=== PATIENT | female | born 1935 | race Two or more races ===

== ENCOUNTER 2018-06-19 16:37 | Inpatient (IN) | payer MEDICARE, MEDICAID ==
[~2018-06-19] VITALS: Ht 165.1 cm; Wt 59.4 kg
[~2018-06-19 16:37] MED LIST: ADVAIR 250/501 PUFFS INH; ALBUTEROL SULF8.5 GM INH; ALBUTEROL2.5 MG/3 M HHN; AMITRIPTYLINE H25 MG ORAL; ARICEPT23 MG ORAL; AZITHROMYCIN250 MG ORAL; BENADRYL25 M2 PO; CELEBREX100 MG ORAL; CELEXA20 MG ORAL; DONEPEZIL HCL10 MG ORAL; DUONEB 0.5-3(2.53 ML HHN; FUROSEMIDE20 M1 ORAL; LORAZEPAM1 MG ORAL; NITROSTAT0.4 M1 SL; PREDNISONE10 M2 PO; PRILOSEC20 MG ORAL; PROAIR HFA8.5 GM INH; RESTORIL7.5 MG ORAL; SINGULAIR10 MG ORAL; TRAMADOL HCL50 MG ORAL; ZOLPIDEM TARTRA10 MG ORAL; pro-air
[2018-06-19 16:57] VITALS: BP 136/65
[2018-06-19] MEDS ORDERED: Sodium Chloride 500ML 500 ML IV ONE (17:11)
[2018-06-19 17:44] LABS: BASOPHILS % (AUTO) 1.3 % (0.0-2.0); HEMATOCRIT 42.3 % (37.0-47.0); HEMOGLOBIN 14.5 G/DL (12.0-16.0); LYMPHOCYTES % (AUTO) 18.9 % (20.0-45.0); MEAN CORPUSCULAR VOLUME 88 FL (80-99); MONOCYTES % (AUTO) 7.2 % (1.0-10.0); NEUTROPHILS % (AUTO) 68.6 % (45.0-75.0); PLATELET COUNT 174 K/UL (150-450); RED BLOOD COUNT 4.78 M/UL (4.20-5.40); RED CELL DISTRIBUTION WIDTH 11.6 % (11.6-14.8); WHITE BLOOD COUNT 9.5 K/UL (4.8-10.8)
[2018-06-19 18:09] LABS: ANION GAP 11 mmol/L (5-15); BLOOD UREA NITROGEN 14 mg/dL (7-18); CALCIUM 8.6 MG/DL (8.5-10.1); CARBON DIOXIDE 23 MMOL/L (21-32); CHLORIDE 105 MMOL/L (98-107); CREATININE 0.9 MG/DL (0.55-1.30); POTASSIUM 4.3 MMOL/L (3.5-5.1); SODIUM 139 MMOL/L (136-145)
[2018-06-19 18:23] LABS: ALANINE AMINOTRANSFERASE 32 U/L (12-78); ALBUMIN/GLOBULIN RATIO 0.7 (1.0-2.7); ALKALINE PHOSPHATASE 73 U/L (46-116); ASPARTATE AMINO TRANSFERASE 28 U/L (15-37); BILIRUBIN,TOTAL 0.8 MG/DL (0.2-1.0); CKMB 0.5 NG/ML (0.0-3.6); CREATINE KINASE 52 U/L (26-308)
[2018-06-19] MEDS ORDERED: IBUPROFEN600 MG ORAL (18:54)
[2018-06-19] MEDS ORDERED: LEXAPRO10 MG ORAL (18:54)
[2018-06-19] MEDS ORDERED: TRAMADOL HCL50 MG ORAL (18:56)
[2018-06-19 19:02] LABS: APPEARANCE,URINE CLEAR; BILIRUBIN, URINE NEGATIVE (NEGATIVE); COLOR,URINE PALE YELLOW; GLUCOSE, URINE (UA) NEGATIVE (NEGATIVE); KETONES,URINE NEGATIVE (NEGATIVE); LEUKOCYTE ESTERASE ,URINE 1+ (NEGATIVE); NITRITE,URINE NEGATIVE (NEGATIVE); PH,URINE 7 (4.5-8.0); PROTEIN,URINE NEGATIVE (NEGATIVE); UROBILINOGEN,URINE NORMAL MG/DL (0.0-1.0)
[2018-06-19] MEDS ORDERED: DICYCLOMINE HCL10 MG PO (19:04)
[2018-06-19] MEDS ORDERED: AMLODIPINE BESY10 MG ORAL (19:04)
[2018-06-19] MEDS ORDERED: CITALOPRAM HBR10 M1 ORAL (19:04)
[2018-06-19 19:06] VITALS: BP 140/75
[2018-06-19 19:15] VITALS: BP 126/58
--- NOTE | 2018-06-19 19:27 | Emergency Room Report ---
History of Present Illness General Chief Complaint: Abnormal Labs Source: Patient, Family Member Present Illness HPI Patient presents with complaints of general weakness patient reports that she was told that she had an abnormal blood work results as well Patient has had some increased cough Denies any chest pain at this time denies any vomiting or diarrhea Denies any dysuria frequency She had questionable near syncope with lightheadedness as well Allergies: Coded Allergies: No Known Allergies (Unverified , 05/08/13) Patient History Past Medical History: see triage record Pertinent Family History: none Last Menstrual Period: na Reviewed Nursing Documentation: PMH: Agreed; PSxH: Agreed Nursing Documentation-PMH Past Medical History: No History, Except For Hx Cardiac Problems: No Hx Hypertension: Yes Hx Asthma: Yes Hx COPD: Yes Hx Cancer: No Hx Gastrointestinal Problems: Yes Hx Neurological Problems: Yes Hx Alzheimer's Disease: Yes Hx Memory Loss: Yes Review of Systems All Other Systems: negative except mentioned in HPI Physical Exam Vital Signs Date Time Temp Pulse Resp B/P (MAP) Pulse Ox O2 Delivery O2 Flow Rate FiO2 06/19/18 16:49 98.4 90 18 136/65 90 Room Air 98.4 Sp02 EP Interpretation: reviewed, normal General Appearance: well appearing, no apparent distress Head: normocephalic, atraumatic Eyes: bilateral eye PERRL, bilateral eye EOMI ENT: hearing grossly normal, normal pharynx, TMs + canals normal, uvula midline Neck: full range of motion, supple, no meningismus, no bony tend Respiratory: lungs clear, normal breath sounds, no rhonchi, no respiratory distress, no retraction, no accessory muscle use Cardiovascular #1: normal peripheral pulses, regular rate, rhythm, no edema, no gallop, no JVD, no murmur Gastrointestinal: normal bowel sounds, non tender, soft, no mass, no organomegaly, non-distended, no guarding, no hernia, no pulsatile mass, no rebound Genitourinary: no CVA tenderness Musculoskeletal: normal inspection Neurologic: oriented x3, responsive, irrigator sprinkling system III-XII nml as tested, motor strength/ tone normal, sensory intact Psychiatric: mood/affect normal Skin: normal color, no rash, warm/dry, palpation normal Lymphatic: normal inspection, no adenopathy Medical Decision Making Diagnostic Impression: Primary Impression: Hypoxia Additional Impression: Reactive airway disease ER Course Patient is a fairly complex patient with multiple differential to consideration including but not limited to cardiac cardiopulmonary and vascular emergencies Patient's x-ray does not reveal any pneumothorax however there is some abnormality in consideration patient provided with IV antibiotics At this time requires further inpatient care Labs Test 06/19/18 17:22 06/19/18 18:50 06/20/18 05:45 White Blood Count 9.5 K/UL (4.8-10.8) 7.3 K/UL (4.8-10.8) Red Blood Count 4.78 M/UL (4.20-5.40) 4.63 M/UL (4.20-5.40) Hemoglobin 14.5 G/DL (12.0-16.0) 14.3 G/DL (12.0-16.0) Hematocrit 42.3 % (37.0-47.0) 41.9 % (37.0-47.0) Mean Corpuscular Volume 88 FL (80-99) 90 FL (80-99) Mean Corpuscular Hemoglobin 30.2 PG (27.0-31.0) 30.9 PG (27.0-31.0) Mean Corpuscular Hemoglobin Concent 34.2 G/DL (32.0-36.0) 34.1 G/DL (32.0-36.0) Red Cell Distribution Width 11.6 % (11.6-14.8) 11.1 % (11.6-14.8) Platelet Count 174 K/UL (150-450) 181 K/UL (150-450) Mean Platelet Volume 8.7 FL (6.5-10.1) 7.1 FL (6.5-10.1) Neutrophils (%) (Auto) 68.6 % (45.0-75.0) 68.1 % (45.0-75.0) Lymphocytes (%) (Auto) 18.9 % (20.0-45.0) 18.7 % (20.0-45.0) Monocytes (%) (Auto) 7.2 % (1.0-10.0) 5.7 % (1.0-10.0) Eosinophils (%) (Auto) 4.0 % (0.0-3.0) 6.1 % (0.0-3.0) Basophils (%) (Auto) 1.3 % (0.0-2.0) 1.3 % (0.0-2.0) Sodium Level 139 MMOL/L (136-145) 140 MMOL/L (136-145) Potassium Level 4.3 MMOL/L (3.5-5.1) 3.9 MMOL/L (3.5-5.1) Chloride Level 105 MMOL/L (98-107) 105 MMOL/L (98-107) Carbon Dioxide Level 23 MMOL/L (21-32) 28 MMOL/L (21-32) Anion Gap 11 mmol/L (5-15) 8 mmol/L (5-15) Blood Urea Nitrogen 14 mg/dL (7-18) 9 mg/dL (7-18) Creatinine 0.9 MG/DL (0.55-1.30) 0.9 MG/DL (0.55-1.30) Estimat Glomerular Filtration Rate mL/min (>60) mL/min (>60) Glucose Level 97 MG/DL (74-106) 115 MG/DL (74-106) Calcium Level 8.6 MG/DL (8.5-10.1) 8.4 MG/DL (8.5-10.1) Total Bilirubin 0.8 MG/DL (0.2-1.0) Aspartate Amino Transf (AST/SGOT) 28 U/L (15-37) Alanine Aminotransferase (ALT/SGPT) 32 U/L (12-78) Alkaline Phosphatase 73 U/L (46-116) Total Creatine Kinase 52 U/L (26-308) Creatine Kinase MB 0.5 NG/ML (0.0-3.6) Creatine Kinase MB Relative Index 0.9 Troponin I 0.000 ng/mL (0.000-0.056) Total Protein 7.1 G/DL (6.4-8.2) Albumin 3.0 G/DL (3.4-5.0) 2.9 G/DL (3.4-5.0) Globulin 4.1 g/dL Albumin/Globulin Ratio 0.7 (1.0-2.7) Lipase 240 U/L (73-393) Urine Color Pale yellow Urine Appearance Clear Urine pH 7 (4.5-8.0) Urine Specific [place] 1.010 (1.005-1.035) Urine Protein Negative (NEGATIVE) Urine Glucose (UA) Negative (NEGATIVE) Urine Ketones Negative (NEGATIVE) Urine Occult Blood Negative (NEGATIVE) Urine Nitrite Negative (NEGATIVE) Urine Bilirubin Negative (NEGATIVE) Urine Urobilinogen Normal MG/DL (0.0-1.0) Urine Leukocyte Esterase 1+ (NEGATIVE) Urine RBC 0-2 /HPF (0 - 2) Urine WBC 2-4 /HPF (0 - 2) Urine Squamous Epithelial Cells Few /LPF (NONE/OCC) Urine Bacteria Few /HPF (NONE) Phosphorus Level 3.3 MG/DL (2.5-4.9) EKG Diagnostic Results Rate: normal Rhythm: NSR ST Segments: no acute changes Rhythm Strip Diag. Results EP Interpretation: yes Rate: 66 Rhythm: NSR, no PVC's, no ectopy Chest X-Ray Diagnostic Results Chest X-Ray Diagnostic Results : Chest X-Ray Ordered: Yes # of Views/Limited/Complete: 1 View Indication: Shortness of Breath Interpretation: no effusion, no pneumothorax, other - Bilateral atelectasis question possible underlying infiltrate, heart size normal, Impression: Other Electronically Signed by: Mary Fernandes DO Last Vital Signs Date Time Temp Pulse Resp B/P (MAP) Pulse Ox O2 Delivery O2 Flow Rate FiO2 06/19/18 19:06 98.4 74 15 140/75 90 Room Air 98.4 Status: improved Disposition: ADMITTED INPATIENT Condition: Serious Referrals: Pal Britt DO (PCP) Mary Fernandes DO Jun 19, 2018 19:27
[2018-06-19 20:30] VITALS: BP 128/75
[2018-06-19] MEDS ORDERED: Nitroglycerin Subl 0.4mg tab SL PRN (20:45)
[2018-06-19] MEDS ORDERED: Mylanta II UD 30ml ORAL PRN (20:45)
[2018-06-19] MEDS ORDERED: Albuterol/Ipratropium 3ml neb HHN PRN (20:45)
[2018-06-19] MEDS ORDERED: Promethazine/Codeine 5ml UD ORAL PRN (20:45)
[2018-06-19] MEDS ORDERED: Miralax 17gm pkt ORAL PRN (20:45)
[2018-06-19] MEDS ORDERED: Vancomycin 1gm in D5W 275ml IVPB SCH (22:00)
[2018-06-19] MEDS: Heparin 5000 units/ml inj SUBQ SCH (22:17)
[2018-06-19] MEDS: Cefepime HCl 1 GM in D5W 55 ML IV SCH (22:36)
[2018-06-20 00:05] VITALS: BP 114/59
[2018-06-20 04:00] VITALS: BP 113/61
[2018-06-20 06:46] LABS: BASOPHILS % (AUTO) 1.3 % (0.0-2.0); EOSINOPHILS % (AUTO) 6.1 % (0.0-3.0); HEMATOCRIT 41.9 % (37.0-47.0); HEMOGLOBIN 14.3 G/DL (12.0-16.0); LYMPHOCYTES % (AUTO) 18.7 % (20.0-45.0); MEAN CORPUSCULAR VOLUME 90 FL (80-99); MONOCYTES % (AUTO) 5.7 % (1.0-10.0); NEUTROPHILS % (AUTO) 68.1 % (45.0-75.0); PLATELET COUNT 181 K/UL (150-450); RED BLOOD COUNT 4.63 M/UL (4.20-5.40); RED CELL DISTRIBUTION WIDTH 11.1 % (11.6-14.8); WHITE BLOOD COUNT 7.3 K/UL (4.8-10.8)
[2018-06-20 06:53] LABS: ALBUMIN 2.9 G/DL (3.4-5.0); ANION GAP 8 mmol/L (5-15); BLOOD UREA NITROGEN 9 mg/dL (7-18); CALCIUM 8.4 MG/DL (8.5-10.1); CARBON DIOXIDE 28 MMOL/L (21-32); CHLORIDE 105 MMOL/L (98-107); CREATININE 0.9 MG/DL (0.55-1.30); PHOSPHORUS 3.3 MG/DL (2.5-4.9); POTASSIUM 3.9 MMOL/L (3.5-5.1); SODIUM 140 MMOL/L (136-145)
[2018-06-20 07:56] VITALS: BP 118/63
[2018-06-20] MEDS: Donepezil 10mg tab ORAL SCH (08:20)
[2018-06-20] MEDS: Heparin 5000 units/ml inj SUBQ SCH ×2 (08:22→20:31)
[2018-06-20] MEDS ORDERED: NS 275ml ONE (10:11)
[2018-06-20] MEDS ORDERED: Tubing IV Secondary IV ONE (10:11)
[2018-06-20 11:39] VITALS: BP 111/54
--- NOTE | 2018-06-20 14:38 | Consultation ---
History of Present Illness General Date patient seen: Jun 20, 2018 Chief Complaint: dyspnea Present Illness HPI 82 year old female with hx of COPD, Hypertension, depression presented to [facility] [place] with CC of increasing SOB, cough, dyspnea and fever for the last few days. Allergies: Coded Allergies: No Known Allergies (Unverified , 05/08/13) Medication History Scheduled Albuterol Sulfate* (Proair Hfa*), 2 PUFFS INH Q6H, (Reported) Amlodipine Besylate* (Amlodipine Besylate*), 10 MG ORAL DAILY, (Reported) Celecoxib* (Celebrex*), 100 MG ORAL DAILY, (Reported) Citalopram Hydrobromide* (Citalopram Hbr*), 10 MG ORAL DAILY, (Reported) Dicyclomine Hcl* (Dicyclomine Hcl*), 10 MG PO TID, (Reported) Donepezil Hcl* (Donepezil Hcl*), 10 MG ORAL DAILY, (Reported) Escitalopram Oxalate* (Lexapro*), 10 MG ORAL DAILY, (Reported) Fluticasone/Salmeterol (Advair 250-50 Diskus), 1 PUFF INH EVERY 12 HOURS, ( Reported) Omeprazole (Prilosec), 20 MG ORAL BID, (Reported) Scheduled PRN Albuterol Sulfate* (Albuterol Sulfate Mdi*), 2 PUFF INH Q4H PRN for For Cough Ibuprofen* (Motrin*), 600 MG ORAL DAILY PRN for For Pain, (Reported) Tramadol Hcl* (Ultram*), 50 MG ORAL EVERY OTHER DAY PRN for For Pain, (Reported) Miscellaneous Medications Ipratropium/Albuterol Sulfate (DuoNeb 0.5-3(2.5)mg/3ml), 3 ML HHN, (Reported) Discontinued Medications Amitriptyline Hcl* (Amitriptyline Hcl*), 25 MG ORAL BEDTIME, (Reported) Discontinued Reason: Pt stopped taking med Azithromycin* (Zithromax*), 250 MG ORAL DAILY Discontinued Reason: Pt stopped taking med Citalopram Hydrobromide* (Celexa*), 10 MG ORAL DAILY, (Reported) Discontinued Reason: Prescription changed Furosemide* (Lasix*), 20 MG ORAL DAILY, (Reported) Discontinued Reason: Pt stopped taking med Lorazepam* (Lorazepam*), 1 MG ORAL, (Reported) Discontinued Reason: Pt stopped taking med Nitroglycerin (Nitrostat), 0.4 MG SL Q5M X3 DOSES PRN for CHEST PAIN, (Reported) Discontinued Reason: Pt stopped taking med Prednisone (Prednisone), 10 MG PO DAILY, (Reported) Discontinued Reason: Pt stopped taking med Zolpidem Tartrate* (Zolpidem Tartrate*), 10 MG ORAL BEDTIME PRN for Insomnia, ( Reported) Discontinued Reason: Pt stopped taking med Patient History Healthcare decision maker N Resuscitation status Advanced Directive on File Past Medical/Surgical History Past Medical/Surgical History: (1) History of hypertension (2) Bronchiectasis Review of Systems All Other Systems: negative except mentioned in HPI Physical Exam General Appearance: WD/WN Lines, tubes and drains: peripheral HEENT: normocephalic, atraumatic Neck: non-tender, normal alignment Respiratory/Chest: chest wall non-tender, lungs clear Cardiovascular/Chest: normal peripheral pulses, normal rate Abdomen: normal bowel sounds, non tender Genitourinary/Rectal: normal genital exam, normal rectal exam Extremities: normal range of motion Last 24 Hour Vital Signs Date Time Temp Pulse Resp B/P (MAP) Pulse Ox O2 Delivery O2 Flow Rate FiO2 06/20/18 11:39 99.0 80 18 111/54 (73) 97 99.0 06/20/18 08:20 79 118/63 06/20/18 08:20 Nasal Cannula 2.0 Nasal Cannula 2.0 06/20/18 07:56 98.8 79 18 118/63 (81) 97 98.8 06/20/18 07:30 Nasal Cannula 2.0 28 06/20/18 07:30 98 20 Nasal Cannula 2.0 28 06/20/18 07:30 Nasal Cannula 2.0 28 06/20/18 06:45 98.2 06/20/18 05:46 98.2 06/20/18 04:00 98.2 75 18 113/61 (78) 96 98.2 06/20/18 00:05 98.1 78 20 114/59 (77) 95 98.1 06/19/18 22:37 98.3 06/19/18 21:23 Nasal Cannula 2.0 06/19/18 21:05 98.3 81 21 126/58 97 Nasal Cannula 2.0 98.3 06/19/18 20:45 97 Nasal Cannula 2.0 28 06/19/18 20:45 Nasal Cannula 2.0 28 06/19/18 20:45 79 18 Nasal Cannula 2.0 28 06/19/18 20:30 98.4 90 20 128/75 (92) 94 98.4 06/19/18 19:15 98.3 81 21 126/58 97 Nasal Cannula 2.0 98.3 06/19/18 19:06 98.4 74 15 140/75 90 Room Air 98.4 06/19/18 16:57 98.4 84 18 136/65 90 Room Air 98.4 06/19/18 16:49 98.4 90 18 136/65 90 Room Air 98.4 Intake and Output 06/19/18 06/20/18 19:00 07:00 Intake Total 500 ml 330.000 ml Balance 500 ml 330.000 ml Intake IV Total 500 ml 330.000 ml # Voids 1 5 Laboratory Tests Test 06/19/18 17:22 06/19/18 18:50 06/20/18 05:45 White Blood Count 9.5 K/UL (4.8-10.8) 7.3 K/UL (4.8-10.8) Red Blood Count 4.78 M/UL (4.20-5.40) 4.63 M/UL (4.20-5.40) Hemoglobin 14.5 G/DL (12.0-16.0) 14.3 G/DL (12.0-16.0) Hematocrit 42.3 % (37.0-47.0) 41.9 % (37.0-47.0) Mean Corpuscular Volume 88 FL (80-99) 90 FL (80-99) Mean Corpuscular Hemoglobin 30.2 PG (27.0-31.0) 30.9 PG (27.0-31.0) Mean Corpuscular Hemoglobin Concent 34.2 G/DL (32.0-36.0) 34.1 G/DL (32.0-36.0) Red Cell Distribution Width 11.6 % (11.6-14.8) 11.1 % (11.6-14.8) L Platelet Count 174 K/UL (150-450) 181 K/UL (150-450) Mean Platelet Volume 8.7 FL (6.5-10.1) 7.1 FL (6.5-10.1) Neutrophils (%) (Auto) 68.6 % (45.0-75.0) 68.1 % (45.0-75.0) Lymphocytes (%) (Auto) 18.9 % (20.0-45.0) L 18.7 % (20.0-45.0) L Monocytes (%) (Auto) 7.2 % (1.0-10.0) 5.7 % (1.0-10.0) Eosinophils (%) (Auto) 4.0 % (0.0-3.0) H 6.1 % (0.0-3.0) H Basophils (%) (Auto) 1.3 % (0.0-2.0) 1.3 % (0.0-2.0) Sodium Level 139 MMOL/L (136-145) 140 MMOL/L (136-145) Potassium Level 4.3 MMOL/L (3.5-5.1) 3.9 MMOL/L (3.5-5.1) Chloride Level 105 MMOL/L (98-107) 105 MMOL/L (98-107) Carbon Dioxide Level 23 MMOL/L (21-32) 28 MMOL/L (21-32) Anion Gap 11 mmol/L (5-15) 8 mmol/L (5-15) Blood Urea Nitrogen 14 mg/dL (7-18) 9 mg/dL (7-18) Creatinine 0.9 MG/DL (0.55-1.30) 0.9 MG/DL (0.55-1.30) Estimat Glomerular Filtration Rate mL/min (>60) mL/min (>60) Glucose Level 97 MG/DL (74-106) 115 MG/DL (74-106) H Calcium Level 8.6 MG/DL (8.5-10.1) 8.4 MG/DL (8.5-10.1) L Total Bilirubin 0.8 MG/DL (0.2-1.0) Aspartate Amino Transf (AST/SGOT) 28 U/L (15-37) Alanine Aminotransferase (ALT/SGPT) 32 U/L (12-78) Alkaline Phosphatase 73 U/L (46-116) Total Creatine Kinase 52 U/L (26-308) Creatine Kinase MB 0.5 NG/ML (0.0-3.6) Creatine Kinase MB Relative Index 0.9 Troponin I 0.000 ng/mL (0.000-0.056) Total Protein 7.1 G/DL (6.4-8.2) Albumin 3.0 G/DL (3.4-5.0) L 2.9 G/DL (3.4-5.0) L Globulin 4.1 g/dL Albumin/Globulin Ratio 0.7 (1.0-2.7) L Lipase 240 U/L (73-393) Urine Color Pale yellow Urine Appearance Clear Urine pH 7 (4.5-8.0) Urine Specific [place] 1.010 (1.005-1.035) Urine Protein Negative (NEGATIVE) Urine Glucose (UA) Negative (NEGATIVE) Urine Ketones Negative (NEGATIVE) Urine Occult Blood Negative (NEGATIVE) Urine Nitrite Negative (NEGATIVE) Urine Bilirubin Negative (NEGATIVE) Urine Urobilinogen Normal MG/DL (0.0-1.0) Urine Leukocyte Esterase 1+ (NEGATIVE) H Urine RBC 0-2 /HPF (0 - 2) Urine WBC 2-4 /HPF (0 - 2) Urine Squamous Epithelial Cells Few /LPF (NONE/OCC) Urine Bacteria Few /HPF (NONE) Phosphorus Level 3.3 MG/DL (2.5-4.9) Height (Feet): 5 Height (Inches): 0.00 Weight (Pounds): 135 Medications Current Medications Medications (Trade) Dose Ordered Sig/Ally Route PRN Reason Start Time Stop Time Status Last Admin Dose Admin Acetaminophen (Tylenol) 650 mg Q4H PRN ORAL fever 06/19/18 20:45 07/19/18 20:44 06/20/18 05:46 Al Hydroxide/Mg Hydroxide (Mylanta II) 30 ml Q6H PRN ORAL dyspepsia 06/19/18 20:45 07/19/18 20:44 Albuterol/ Ipratropium (Albuterol/ Ipratropium) 3 ml Q4H PRN HHN Shortness of Breath 06/19/18 20:45 06/24/18 20:44 Amlodipine Besylate (Norvasc) 10 mg DAILY ORAL 06/20/18 09:00 07/20/18 08:59 06/20/18 08:20 Cefepime HCl 1 gm/ Dextrose 55 ml @ 110 mls/hr Q24H IV 06/19/18 22:00 06/26/18 21:59 06/19/18 22:36 Donepezil HCl (Aricept) 10 mg DAILY ORAL 06/20/18 09:00 07/20/18 08:59 06/20/18 08:20 Heparin Sodium (Porcine) (Heparin 5000 units/ml) 5,000 units EVERY 12 HOURS SUBQ 06/19/18 21:00 07/19/18 20:59 06/20/18 08:22 Nitroglycerin (Ntg) 0.4 mg Q5M PRN SL Prn Chest Pain 06/19/18 20:45 07/19/18 20:44 Ondansetron HCl (Zofran) 4 mg Q6H PRN IVP Nausea & Vomiting 06/19/18 20:45 07/19/18 20:44 Polyethylene Glycol (Miralax) 17 gm DAILYPRN PRN ORAL Constipation 06/19/18 20:45 07/19/18 20:44 Promethazine HCl/ Codeine (Phenergan with Codeine) 5 ml Q4H PRN ORAL For Cough 06/19/18 20:45 07/19/18 20:44 06/20/18 08:20 Temazepam (Restoril) 15 mg HSPRN PRN ORAL Insomnia 06/19/18 20:45 06/26/18 20:44 Vancomycin HCl (Vanco rx to dose) 1 ea DAILY PRN MISC Per rx protocol 06/19/18 20:45 07/19/18 20:44 Vancomycin HCl 500 mg/Dextrose 110 ml @ 110 mls/hr Q24H IVPB 06/20/18 22:00 06/25/18 21:59 Assessment/Plan Problem List: (1) Pneumonia ICD Codes: J18.9 - Pneumonia, unspecified organism SNOMED: 289169106 (2) Bronchiectasis ICD Codes: J47.9 - Bronchiectasis, uncomplicated SNOMED: 50145199 (3) Reactive airway disease ICD Codes: J45.909 - Unspecified asthma, uncomplicated SNOMED: 843734369187 (4) History of hypertension ICD Codes: Z86.79 - Personal history of other diseases of the circulatory system SNOMED: 406199032 Assessment/Plan check sputum iv abxc chest pT titrate fio2 to sat of 92% dvt prophylaxis Jamie Griffin MD Jun 20, 2018 14:38
--- NOTE | 2018-06-20 14:50 | Diagnostic Imaging Report ---
Indication: Shortness of breath Technique: XRAY Chest 1v Comparison: 04/17/2015 Findings: Heart size and mediastinal contours stable. There is unchanged scarring with bronchiectasis in the left upper lobe and biapical pleural thickening. Mild central pulmonary vascular congestion. No definite focal consolidation. No acute osseous abnormality. No pneumothorax. Impression: Chronic lung disease with biapical pleural thickening and scarring and bronchiectasis in the left upper lung. Superimposed infection not excluded. Clinical correlation and follow-up exam recommended.
[2018-06-20 15:46] VITALS: BP 121/59
--- NOTE | 2018-06-20 16:58 | Consultation ---
History of Present Illness General Date patient seen: Jun 20, 2018 Chief Complaint: Abnormal Labs Present Illness HPI 82 y/o F with hx of HTN, Asthma/COPD, Alzheimer Dementia presents to ED on 06/19 with general weakness, increased cough Denies CP, v/d, dysuria Allergies: Coded Allergies: No Known Allergies (Unverified , 05/08/13) Medication History Scheduled Albuterol Sulfate* (Proair Hfa*), 2 PUFFS INH Q6H, (Reported) Amlodipine Besylate* (Amlodipine Besylate*), 10 MG ORAL DAILY, (Reported) Celecoxib* (Celebrex*), 100 MG ORAL DAILY, (Reported) Citalopram Hydrobromide* (Citalopram Hbr*), 10 MG ORAL DAILY, (Reported) Dicyclomine Hcl* (Dicyclomine Hcl*), 10 MG PO TID, (Reported) Donepezil Hcl* (Donepezil Hcl*), 10 MG ORAL DAILY, (Reported) Escitalopram Oxalate* (Lexapro*), 10 MG ORAL DAILY, (Reported) Fluticasone/Salmeterol (Advair 250-50 Diskus), 1 PUFF INH EVERY 12 HOURS, ( Reported) Omeprazole (Prilosec), 20 MG ORAL BID, (Reported) Scheduled PRN Albuterol Sulfate* (Albuterol Sulfate Mdi*), 2 PUFF INH Q4H PRN for For Cough Ibuprofen* (Motrin*), 600 MG ORAL DAILY PRN for For Pain, (Reported) Tramadol Hcl* (Ultram*), 50 MG ORAL EVERY OTHER DAY PRN for For Pain, (Reported) Miscellaneous Medications Ipratropium/Albuterol Sulfate (DuoNeb 0.5-3(2.5)mg/3ml), 3 ML HHN, (Reported) Discontinued Medications Amitriptyline Hcl* (Amitriptyline Hcl*), 25 MG ORAL BEDTIME, (Reported) Discontinued Reason: Pt stopped taking med Azithromycin* (Zithromax*), 250 MG ORAL DAILY Discontinued Reason: Pt stopped taking med Citalopram Hydrobromide* (Celexa*), 10 MG ORAL DAILY, (Reported) Discontinued Reason: Prescription changed Furosemide* (Lasix*), 20 MG ORAL DAILY, (Reported) Discontinued Reason: Pt stopped taking med Lorazepam* (Lorazepam*), 1 MG ORAL, (Reported) Discontinued Reason: Pt stopped taking med Nitroglycerin (Nitrostat), 0.4 MG SL Q5M X3 DOSES PRN for CHEST PAIN, (Reported) Discontinued Reason: Pt stopped taking med Prednisone (Prednisone), 10 MG PO DAILY, (Reported) Discontinued Reason: Pt stopped taking med Zolpidem Tartrate* (Zolpidem Tartrate*), 10 MG ORAL BEDTIME PRN for Insomnia, ( Reported) Discontinued Reason: Pt stopped taking med Patient History Healthcare decision maker N Resuscitation status Advanced Directive on File Patient History Narrative Pmhx: as above Shx: reviewed Fhx: non contributory Review of Systems All Other Systems: negative except mentioned in HPI Physical Exam Physical Exam Narrative General Appearance: well appearing, no apparent distress Head: normocephalic, atraumatic Eyes: bilateral eye PERRL, bilateral eye EOMI ENT: hearing grossly normal, normal pharynx, TMs + canals normal, uvula midline Neck: full range of motion, supple, no meningismus, no bony tend Respiratory: lungs clear, normal breath sounds, no rhonchi, no respiratory distress, no retraction, no accessory muscle use Cardiovascular normal peripheral pulses, regular rate, rhythm, no edema, no gallop, no JVD, no murmur Gastrointestinal: normal bowel sounds, non tender, soft, no mass, no organomegaly, non-distended, no guarding, no hernia, no pulsatile mass, no rebound Genitourinary: no CVA tenderness Musculoskeletal: normal inspection Neurologic: oriented x3, responsive, web design intern III-XII nml as tested, motor strength/ tone normal, sensory intact Skin: normal color, no rash, warm/dry, palpation normal Last 24 Hour Vital Signs Date Time Temp Pulse Resp B/P (MAP) Pulse Ox O2 Delivery O2 Flow Rate FiO2 06/20/18 15:46 98.6 79 18 121/59 (79) 97 98.6 06/20/18 11:39 99.0 80 18 111/54 (73) 97 99.0 06/20/18 08:20 79 118/63 06/20/18 08:20 Nasal Cannula 2.0 Nasal Cannula 2.0 06/20/18 07:56 98.8 79 18 118/63 (81) 97 98.8 06/20/18 07:30 Nasal Cannula 2.0 28 06/20/18 07:30 98 20 Nasal Cannula 2.0 28 06/20/18 07:30 Nasal Cannula 2.0 28 06/20/18 06:45 98.2 06/20/18 05:46 98.2 06/20/18 04:00 98.2 75 18 113/61 (78) 96 98.2 06/20/18 00:05 98.1 78 20 114/59 (77) 95 98.1 06/19/18 22:37 98.3 06/19/18 21:23 Nasal Cannula 2.0 06/19/18 21:05 98.3 81 21 126/58 97 Nasal Cannula 2.0 98.3 06/19/18 20:45 97 Nasal Cannula 2.0 28 06/19/18 20:45 Nasal Cannula 2.0 28 06/19/18 20:45 79 18 Nasal Cannula 2.0 28 06/19/18 20:30 98.4 90 20 128/75 (92) 94 98.4 06/19/18 19:15 98.3 81 21 126/58 97 Nasal Cannula 2.0 98.3 06/19/18 19:06 98.4 74 15 140/75 90 Room Air 98.4 06/19/18 16:57 98.4 84 18 136/65 90 Room Air 98.4 Intake and Output 06/19/18 06/20/18 19:00 07:00 Intake Total 500 ml 330.000 ml Balance 500 ml 330.000 ml Intake IV Total 500 ml 330.000 ml # Voids 1 5 Laboratory Tests Test 06/19/18 17:22 06/19/18 18:50 06/20/18 05:45 White Blood Count 9.5 K/UL (4.8-10.8) 7.3 K/UL (4.8-10.8) Red Blood Count 4.78 M/UL (4.20-5.40) 4.63 M/UL (4.20-5.40) Hemoglobin 14.5 G/DL (12.0-16.0) 14.3 G/DL (12.0-16.0) Hematocrit 42.3 % (37.0-47.0) 41.9 % (37.0-47.0) Mean Corpuscular Volume 88 FL (80-99) 90 FL (80-99) Mean Corpuscular Hemoglobin 30.2 PG (27.0-31.0) 30.9 PG (27.0-31.0) Mean Corpuscular Hemoglobin Concent 34.2 G/DL (32.0-36.0) 34.1 G/DL (32.0-36.0) Red Cell Distribution Width 11.6 % (11.6-14.8) 11.1 % (11.6-14.8) L Platelet Count 174 K/UL (150-450) 181 K/UL (150-450) Mean Platelet Volume 8.7 FL (6.5-10.1) 7.1 FL (6.5-10.1) Neutrophils (%) (Auto) 68.6 % (45.0-75.0) 68.1 % (45.0-75.0) Lymphocytes (%) (Auto) 18.9 % (20.0-45.0) L 18.7 % (20.0-45.0) L Monocytes (%) (Auto) 7.2 % (1.0-10.0) 5.7 % (1.0-10.0) Eosinophils (%) (Auto) 4.0 % (0.0-3.0) H 6.1 % (0.0-3.0) H Basophils (%) (Auto) 1.3 % (0.0-2.0) 1.3 % (0.0-2.0) Sodium Level 139 MMOL/L (136-145) 140 MMOL/L (136-145) Potassium Level 4.3 MMOL/L (3.5-5.1) 3.9 MMOL/L (3.5-5.1) Chloride Level 105 MMOL/L (98-107) 105 MMOL/L (98-107) Carbon Dioxide Level 23 MMOL/L (21-32) 28 MMOL/L (21-32) Anion Gap 11 mmol/L (5-15) 8 mmol/L (5-15) Blood Urea Nitrogen 14 mg/dL (7-18) 9 mg/dL (7-18) Creatinine 0.9 MG/DL (0.55-1.30) 0.9 MG/DL (0.55-1.30) Estimat Glomerular Filtration Rate mL/min (>60) mL/min (>60) Glucose Level 97 MG/DL (74-106) 115 MG/DL (74-106) H Calcium Level 8.6 MG/DL (8.5-10.1) 8.4 MG/DL (8.5-10.1) L Total Bilirubin 0.8 MG/DL (0.2-1.0) Aspartate Amino Transf (AST/SGOT) 28 U/L (15-37) Alanine Aminotransferase (ALT/SGPT) 32 U/L (12-78) Alkaline Phosphatase 73 U/L (46-116) Total Creatine Kinase 52 U/L (26-308) Creatine Kinase MB 0.5 NG/ML (0.0-3.6) Creatine Kinase MB Relative Index 0.9 Troponin I 0.000 ng/mL (0.000-0.056) Total Protein 7.1 G/DL (6.4-8.2) Albumin 3.0 G/DL (3.4-5.0) L 2.9 G/DL (3.4-5.0) L Globulin 4.1 g/dL Albumin/Globulin Ratio 0.7 (1.0-2.7) L Lipase 240 U/L (73-393) Urine Color Pale yellow Urine Appearance Clear Urine pH 7 (4.5-8.0) Urine Specific [place] 1.010 (1.005-1.035) Urine Protein Negative (NEGATIVE) Urine Glucose (UA) Negative (NEGATIVE) Urine Ketones Negative (NEGATIVE) Urine Occult Blood Negative (NEGATIVE) Urine Nitrite Negative (NEGATIVE) Urine Bilirubin Negative (NEGATIVE) Urine Urobilinogen Normal MG/DL (0.0-1.0) Urine Leukocyte Esterase 1+ (NEGATIVE) H Urine RBC 0-2 /HPF (0 - 2) Urine WBC 2-4 /HPF (0 - 2) Urine Squamous Epithelial Cells Few /LPF (NONE/OCC) Urine Bacteria Few /HPF (NONE) Phosphorus Level 3.3 MG/DL (2.5-4.9) Height (Feet): 5 Height (Inches): 0.00 Weight (Pounds): 135 Medications Current Medications Medications (Trade) Dose Ordered Sig/Ally Route PRN Reason Start Time Stop Time Status Last Admin Dose Admin Acetaminophen (Tylenol) 650 mg Q4H PRN ORAL fever 06/19/18 20:45 07/19/18 20:44 06/20/18 05:46 Al Hydroxide/Mg Hydroxide (Mylanta II) 30 ml Q6H PRN ORAL dyspepsia 06/19/18 20:45 07/19/18 20:44 Albuterol/ Ipratropium (Albuterol/ Ipratropium) 3 ml Q4H PRN HHN Shortness of Breath 06/19/18 20:45 06/24/18 20:44 Amlodipine Besylate (Norvasc) 10 mg DAILY ORAL 06/20/18 09:00 07/20/18 08:59 06/20/18 08:20 Cefepime HCl 1 gm/ Dextrose 55 ml @ 110 mls/hr Q24H IV 06/19/18 22:00 06/26/18 21:59 06/19/18 22:36 Donepezil HCl (Aricept) 10 mg DAILY ORAL 06/20/18 09:00 07/20/18 08:59 06/20/18 08:20 Heparin Sodium (Porcine) (Heparin 5000 units/ml) 5,000 units EVERY 12 HOURS SUBQ 06/19/18 21:00 07/19/18 20:59 06/20/18 08:22 Nitroglycerin (Ntg) 0.4 mg Q5M PRN SL Prn Chest Pain 06/19/18 20:45 07/19/18 20:44 Ondansetron HCl (Zofran) 4 mg Q6H PRN IVP Nausea & Vomiting 06/19/18 20:45 07/19/18 20:44 Polyethylene Glycol (Miralax) 17 gm DAILYPRN PRN ORAL Constipation 06/19/18 20:45 07/19/18 20:44 Promethazine HCl/ Codeine (Phenergan with Codeine) 5 ml Q4H PRN ORAL For Cough 06/19/18 20:45 07/19/18 20:44 06/20/18 08:20 Temazepam (Restoril) 15 mg HSPRN PRN ORAL Insomnia 06/19/18 20:45 06/26/18 20:44 Vancomycin HCl (Vanco rx to dose) 1 ea DAILY PRN MISC Per rx protocol 06/19/18 20:45 07/19/18 20:44 Vancomycin HCl 500 mg/Dextrose 110 ml @ 110 mls/hr Q24H IVPB 06/20/18 22:00 06/25/18 21:59 Assessment/Plan Assessment/Plan Abx: IV Vanco 06/19- Cefepime 06/19- Assessment: Probable bronchitis -CXR: Chronic lung disease with biapical pleural thickening and scarring and bronchiectasis in the left upper lung. Superimposed infection not excluded. Clinical correlation and follow-up exam recommended. Afebrile, no leukocytosis -u/a neg HTN Asthma/COPD Alzheimer Dementia Plan: -Switch IV vanco and Cefepime #2 to PO levaquin -f/u cx -Monitor CBC/CMP, temperatures -aspiration precautions -EKG am Thank you for this consultation. Will continue to follow along with you. Discussed with BIBI. Peggy Hernandez M.D. Jun 20, 2018 16:58
--- NOTE | 2018-06-20 19:00 | History and Physical Report ---
DATE OF ADMISSION: 06/19/2018 TIME SEEN: On 06/20/2018 at 2 p.m. ATTENDING PHYSICIAN: Pal Britt D.O. CONSULTANTS: 1. Jamie Griffin M.D. 2. Nahun Hernandez M.D. CHIEF COMPLAINT: Shortness of breath, bronchiectasis, fever, possible pneumonia. BRIEF HISTORY: This is an 82-year-old female, who lives at home and presents with one week of increased shortness of breath and slight fever, came to [place], diagnosed with possible bronchiectasis and possible pneumonia, admitted to medical floor for further treatment. Currently, O2 NC, calm, slightly short of breath, no complaint. REVIEW OF SYSTEMS: No chest pain. Slightly short of breath. No nausea, vomiting, or diarrhea. PAST MEDICAL HISTORY: Includes COPD, asthma. PAST SURGICAL HISTORY: None. ALLERGIES: Denies. MEDICATIONS: Include vancomycin, amlodipine, benazepril, cefepime, heparin, Tylenol, Zofran, temazepam. SOCIAL HISTORY: No smoking. No alcohol. No intravenous drug abuse. FAMILY HISTORY: Noncontributory. PHYSICAL EXAMINATION: GENERAL: Calm in bed, slightly short of breath, O2 NC in place, no complaint. VITAL SIGNS: Show temperature is 99, pulse 80, respiratory rate 18, blood pressure 111/54. CARDIOVASCULAR: No murmur. LUNGS: Poor air exchange. ABDOMEN: Bowel sounds distant. EXTREMITIES: Show no cyanosis, clubbing, or edema. NEUROLOGIC: The patient moves all extremities, slightly weak. LABORATORY AND DIAGNOSTIC DATA: Labs at this time show CBC is normal. BMP shows glucose 115, albumin 2.9, otherwise BMP is normal. Urinalysis show 1+ leukocyte esterase. ASSESSMENT: Shortness of breath, bronchiectasis, UTI, fever, pneumonia, hypertension, COPD, asthma. PLAN: Continue previous medications. O2 and pulmonary treatment. Antibiotics per Infectious Disease. Blood pressure control. Pain control. OT, PT, dietary evaluation. CBC and BMP in the morning. Dr. Griffin and Dr. Hernandez to consult. Pal Britt D.O. DR: Satya JOB#: [id number] CC:
[2018-06-20 20:00] VITALS: BP 137/63
[2018-06-20] MEDS: Cefepime HCl 1 GM in D5W 55 ML IV SCH (21:35)
[2018-06-20] MEDS ORDERED: Vancomycin 500mg/D5W 110ml IVPB SCH ×2 (22:00)
[2018-06-21] VITALS (7 sets, daily range): BP systolic 120–131; BP diastolic 54–63
[2018-06-21 07:43] LABS: BASOPHILS % (AUTO) 1.2 % (0.0-2.0); EOSINOPHILS % (AUTO) 5.1 % (0.0-3.0); HEMATOCRIT 42.2 % (37.0-47.0); HEMOGLOBIN 14.3 G/DL (12.0-16.0); LYMPHOCYTES % (AUTO) 16.8 % (20.0-45.0); MEAN CORPUSCULAR VOLUME 90 FL (80-99); MONOCYTES % (AUTO) 6.7 % (1.0-10.0); NEUTROPHILS % (AUTO) 70.3 % (45.0-75.0); PLATELET COUNT 171 K/UL (150-450); RED BLOOD COUNT 4.68 M/UL (4.20-5.40); WHITE BLOOD COUNT 7.3 K/UL (4.8-10.8)
[2018-06-21 07:58] LABS: ANION GAP 6 mmol/L (5-15); BLOOD UREA NITROGEN 8 mg/dL (7-18); CALCIUM 8.5 MG/DL (8.5-10.1); CARBON DIOXIDE 31 MMOL/L (21-32); CHLORIDE 103 MMOL/L (98-107); POTASSIUM 3.8 MMOL/L (3.5-5.1); SODIUM 140 MMOL/L (136-145)
[2018-06-21] MEDS: Donepezil 10mg tab ORAL SCH (08:50)
[2018-06-21] MEDS: Heparin 5000 units/ml inj SUBQ SCH ×2 (08:52→20:18)
[2018-06-21] MEDS ORDERED: Levofloxacin 500mg tab ORAL SCH (09:00)
--- NOTE | 2018-06-21 14:35 | Pulmonology Progress Note ---
Assessment/Plan Problems: (1) Pneumonia (2) Bronchiectasis (3) Reactive airway disease (4) History of hypertension Assessment/Plan all reviewed check sputum titrate fio2 to sat of 92% monitor BP chest PT dvt prophylaxis. Subjective ROS Limited/Unobtainable: No Interval Events: less cough Constitutional: Reports: no symptoms HEENT: Repors: no symptoms Allergies: Coded Allergies: No Known Allergies (Unverified , 05/08/13) Objective Last 24 Hour Vital Signs Date Time Temp Pulse Resp B/P (MAP) Pulse Ox O2 Delivery O2 Flow Rate FiO2 06/21/18 12:00 97.5 80 20 128/57 (80) 97 97.5 80 06/21/18 09:06 Nasal Cannula 2.0 Nasal Cannula 2.0 06/21/18 08:58 85 124/59 (80) 06/21/18 08:51 85 124/59 06/21/18 08:00 97.8 82 19 121/54 (76) 96 97.8 82 06/21/18 06:53 Nasal Cannula 2.0 28 06/21/18 06:53 98 Nasal Cannula 2.0 28 06/21/18 06:53 90 18 Nasal Cannula 2.0 28 06/21/18 04:00 98.2 80 19 120/59 (79) 96 98.2 06/21/18 00:00 98.1 75 18 131/59 (83) 97 98.1 06/20/18 21:00 Nasal Cannula 2.0 Nasal Cannula 2.0 06/20/18 20:00 98.2 77 20 137/63 (87) 98 98.2 06/20/18 19:24 93 18 Nasal Cannula 2.0 28 06/20/18 19:24 Nasal Cannula 2.0 28 06/20/18 19:24 98 Nasal Cannula 2.0 28 06/20/18 15:46 98.6 79 18 121/59 (79) 97 98.6 Intake and Output 06/20/18 06/21/18 19:00 07:00 Intake Total 500 ml 360 ml Balance 500 ml 360 ml Intake Oral 500 ml 360 ml # Voids 2 3 General Appearance: WD/WN HEENT: normocephalic, anicteric Respiratory/Chest: chest wall non-tender, lungs clear Breasts: no masses Cardiovascular: normal peripheral pulses, normal rate Abdomen: normal bowel sounds Genitourinary: normal external genitalia Extremities: no clubbing Neurologic/Psychiatric: legal office administrator II-XII grossly normal Microbiology Date/Time Source Procedure Growth Status 06/19/18 17:55 Blood Blood Culture - Preliminary NO GROWTH AFTER 24 HOURS Resulted 06/19/18 17:40 Blood Blood Culture - Preliminary NO GROWTH AFTER 24 HOURS Resulted Laboratory Tests 06/21/18 06:35: White Blood Count 7.3, Red Blood Count 4.68, Hemoglobin 14.3, Hematocrit 42.2, Mean Corpuscular Volume 90, Mean Corpuscular Hemoglobin 30.6, Mean Corpuscular Hemoglobin Concent 33.9, Red Cell Distribution Width 11.0L, Platelet Count 171, Mean Platelet Volume 7.1, Neutrophils (%) (Auto) 70.3, Lymphocytes (%) (Auto) 16.8L, Monocytes (%) (Auto) 6.7, Eosinophils (%) (Auto) 5.1H, Basophils (%) ( Auto) 1.2, Sodium Level 140, Potassium Level 3.8, Chloride Level 103, Carbon Dioxide Level 31, Anion Gap 6, Blood Urea Nitrogen 8, Creatinine 1.0, Estimat Glomerular Filtration Rate , Glucose Level 120H, Calcium Level 8.5 Current Medications Medications (Trade) Dose Ordered Sig/Ally Route PRN Reason Start Time Stop Time Status Last Admin Dose Admin Acetaminophen (Tylenol) 650 mg Q4H PRN ORAL fever 06/19/18 20:45 07/19/18 20:44 06/20/18 20:33 Al Hydroxide/Mg Hydroxide (Mylanta II) 30 ml Q6H PRN ORAL dyspepsia 06/19/18 20:45 07/19/18 20:44 Albuterol/ Ipratropium (Albuterol/ Ipratropium) 3 ml Q4H PRN HHN Shortness of Breath 06/19/18 20:45 06/24/18 20:44 Amlodipine Besylate (Norvasc) 10 mg DAILY ORAL 06/20/18 09:00 07/20/18 08:59 06/21/18 08:51 Donepezil HCl (Aricept) 10 mg DAILY ORAL 06/20/18 09:00 07/20/18 08:59 06/21/18 08:50 Heparin Sodium (Porcine) (Heparin 5000 units/ml) 5,000 units EVERY 12 HOURS SUBQ 7/22/18 21:00 07/19/18 20:59 06/21/18 08:52 Levofloxacin (Levaquin) 500 mg DAILY ORAL 06/21/18 09:00 06/28/18 08:59 06/21/18 08:50 Nitroglycerin (Ntg) 0.4 mg Q5M PRN SL Prn Chest Pain 06/19/18 20:45 07/19/18 20:44 Ondansetron HCl (Zofran) 4 mg Q6H PRN IVP Nausea & Vomiting 06/19/18 20:45 07/19/18 20:44 Polyethylene Glycol (Miralax) 17 gm DAILYPRN PRN ORAL Constipation 06/19/18 20:45 07/19/18 20:44 Promethazine HCl/ Codeine (Phenergan with Codeine) 5 ml Q4H PRN ORAL For Cough 06/19/18 20:45 07/19/18 20:44 06/20/18 08:20 Temazepam (Restoril) 15 mg HSPRN PRN ORAL Insomnia 06/19/18 20:45 06/26/18 20:44 Jamie Griffin MD Jun 21, 2018 14:35
--- NOTE | 2018-06-21 15:44 | General Progress Note ---
Assessment/Plan Problem List: (1) COPD exacerbation ICD Codes: J44.1 - Chronic obstructive pulmonary disease with (acute) exacerbation SNOMED: 671939093 (2) Hypoxia ICD Codes: R09.02 - Hypoxemia SNOMED: 194521092 (3) Respiratory distress ICD Codes: R06.00 - Dyspnea, unspecified SNOMED: 584548899 (4) Reactive airway disease ICD Codes: J45.909 - Unspecified asthma, uncomplicated SNOMED: 834442036269 (5) Bronchiectasis ICD Codes: J47.9 - Bronchiectasis, uncomplicated SNOMED: 07892461 (6) History of hypertension ICD Codes: Z86.79 - Personal history of other diseases of the circulatory system SNOMED: 866083568 Status: unchanged Assessment/Plan o2 pulm tx abx cbc bmp in am Subjective Constitutional: Reports: weakness Allergies: Coded Allergies: No Known Allergies (Unverified , 05/08/13) All Systems: reviewed and negative except above Subjective 02 nc sl sob Objective Last 24 Hour Vital Signs Date Time Temp Pulse Resp B/P (MAP) Pulse Ox O2 Delivery O2 Flow Rate FiO2 06/21/18 12:00 97.5 80 20 128/57 (80) 97 97.5 80 06/21/18 09:06 Nasal Cannula 2.0 Nasal Cannula 2.0 06/21/18 08:58 85 124/59 (80) 06/21/18 08:51 85 124/59 06/21/18 08:00 97.8 82 19 121/54 (76) 96 97.8 82 06/21/18 06:53 Nasal Cannula 2.0 28 06/21/18 06:53 98 Nasal Cannula 2.0 28 06/21/18 06:53 90 18 Nasal Cannula 2.0 28 06/21/18 04:00 98.2 80 19 120/59 (79) 96 98.2 06/21/18 00:00 98.1 75 18 131/59 (83) 97 98.1 06/20/18 21:00 Nasal Cannula 2.0 Nasal Cannula 2.0 06/20/18 20:00 98.2 77 20 137/63 (87) 98 98.2 06/20/18 19:24 93 18 Nasal Cannula 2.0 28 06/20/18 19:24 Nasal Cannula 2.0 28 06/20/18 19:24 98 Nasal Cannula 2.0 28 06/20/18 15:46 98.6 79 18 121/59 (79) 97 98.6 Intake and Output 06/20/18 06/21/18 19:00 07:00 Intake Total 500 ml 360 ml Balance 500 ml 360 ml Intake Oral 500 ml 360 ml # Voids 2 3 Laboratory Tests 06/21/18 06:35: White Blood Count 7.3, Red Blood Count 4.68, Hemoglobin 14.3, Hematocrit 42.2, Mean Corpuscular Volume 90, Mean Corpuscular Hemoglobin 30.6, Mean Corpuscular Hemoglobin Concent 33.9, Red Cell Distribution Width 11.0L, Platelet Count 171, Mean Platelet Volume 7.1, Neutrophils (%) (Auto) 70.3, Lymphocytes (%) (Auto) 16.8L, Monocytes (%) (Auto) 6.7, Eosinophils (%) (Auto) 5.1H, Basophils (%) ( Auto) 1.2, Sodium Level 140, Potassium Level 3.8, Chloride Level 103, Carbon Dioxide Level 31, Anion Gap 6, Blood Urea Nitrogen 8, Creatinine 1.0, Estimat Glomerular Filtration Rate , Glucose Level 120H, Calcium Level 8.5 Height (Feet): 5 Height (Inches): 0.00 Weight (Pounds): 135 General Appearance: lethargic EENT: normal ENT inspection Neck: normal alignment Cardiovascular: normal peripheral pulses, normal rate, regular rhythm Respiratory/Chest: chest wall non-tender, decreased breath sounds Abdomen: normal bowel sounds, non tender, soft Extremities: normal inspection Edema: no edema noted Arm (L), no edema noted Arm (R), no edema noted Leg (L), no edema noted Leg (R), no edema noted Pedal (L), no edema noted Pedal (R), no edema noted Generalized Neurologic: responsive, motor weakness Skin: normal pigmentation, warm/dry Pal Britt DO Jun 21, 2018 15:44
--- NOTE | 2018-06-21 18:24 | Infectious Diseases Prog Note ---
Assessment/Plan Assessment/Plan Assessment: Probable bronchitis -CXR: Chronic lung disease with biapical pleural thickening and scarring and bronchiectasis in the left upper lung. Superimposed infection not excluded. Clinical correlation and follow-up exam recommended. Afebrile, no leukocytosis -u/a neg HTN Asthma/COPD Alzheimer Dementia Plan: -Continue PO levaquin abx d# #3/5 -06/20 SP IV Vanco and Cefepime #2 -f/u cx -Monitor CBC/CMP, temperatures -aspiration precautions -CXR am Thank you for this consultation. Will continue to follow along with you. Discussed with RN. Subjective Allergies: Coded Allergies: No Known Allergies (Unverified , 05/08/13) Subjective afebrile at 2l NC no leukocytosis Objective Vital Signs Last 24 Hour Vital Signs Date Time Temp Pulse Resp B/P (MAP) Pulse Ox O2 Delivery O2 Flow Rate FiO2 06/21/18 16:00 97.8 82 20 131/63 (85) 95 97.8 82 06/21/18 12:00 97.5 80 20 128/57 (80) 97 97.5 80 06/21/18 09:06 Nasal Cannula 2.0 Nasal Cannula 2.0 06/21/18 08:58 85 124/59 (80) 06/21/18 08:51 85 124/59 06/21/18 08:00 97.8 82 19 121/54 (76) 96 97.8 82 06/21/18 06:53 Nasal Cannula 2.0 28 06/21/18 06:53 98 Nasal Cannula 2.0 28 06/21/18 06:53 90 18 Nasal Cannula 2.0 28 06/21/18 04:00 98.2 80 19 120/59 (79) 96 98.2 06/21/18 00:00 98.1 75 18 131/59 (83) 97 98.1 06/20/18 21:00 Nasal Cannula 2.0 Nasal Cannula 2.0 06/20/18 20:00 98.2 77 20 137/63 (87) 98 98.2 06/20/18 19:24 93 18 Nasal Cannula 2.0 28 06/20/18 19:24 Nasal Cannula 2.0 28 06/20/18 19:24 98 Nasal Cannula 2.0 28 Height (Feet): 5 Height (Inches): 0.00 Weight (Pounds): 135 Objective General Appearance: well appearing, no apparent distress Head: normocephalic, atraumatic Eyes: bilateral eye PERRL, bilateral eye EOMI ENT: hearing grossly normal, normal pharynx, TMs + canals normal, uvula midline Neck: full range of motion, supple, no meningismus, no bony tend Respiratory: lungs clear, normal breath sounds, no rhonchi, no respiratory distress, no retraction, no accessory muscle use Cardiovascular normal peripheral pulses, regular rate, rhythm, no edema, no gallop, no JVD, no murmur Gastrointestinal: normal bowel sounds, non tender, soft, no mass, no organomegaly, non-distended, no guarding, no hernia, no pulsatile mass, no rebound Genitourinary: no CVA tenderness Musculoskeletal: normal inspection Neurologic: oriented x3, responsive, applications consultant III-XII nml as tested, motor strength/ tone normal, sensory intact Skin: normal color, no rash, warm/dry, palpation normal Microbiology Date/Time Source Procedure Growth Status 06/19/18 17:55 Blood Blood Culture - Preliminary NO GROWTH AFTER 24 HOURS Resulted 06/19/18 17:40 Blood Blood Culture - Preliminary NO GROWTH AFTER 24 HOURS Resulted Laboratory Tests Test 06/21/18 06:35 White Blood Count 7.3 K/UL (4.8-10.8) Red Blood Count 4.68 M/UL (4.20-5.40) Hemoglobin 14.3 G/DL (12.0-16.0) Hematocrit 42.2 % (37.0-47.0) Mean Corpuscular Volume 90 FL (80-99) Mean Corpuscular Hemoglobin 30.6 PG (27.0-31.0) Mean Corpuscular Hemoglobin Concent 33.9 G/DL (32.0-36.0) Red Cell Distribution Width 11.0 % (11.6-14.8) L Platelet Count 171 K/UL (150-450) Mean Platelet Volume 7.1 FL (6.5-10.1) Neutrophils (%) (Auto) 70.3 % (45.0-75.0) Lymphocytes (%) (Auto) 16.8 % (20.0-45.0) L Monocytes (%) (Auto) 6.7 % (1.0-10.0) Eosinophils (%) (Auto) 5.1 % (0.0-3.0) H Basophils (%) (Auto) 1.2 % (0.0-2.0) Sodium Level 140 MMOL/L (136-145) Potassium Level 3.8 MMOL/L (3.5-5.1) Chloride Level 103 MMOL/L (98-107) Carbon Dioxide Level 31 MMOL/L (21-32) Anion Gap 6 mmol/L (5-15) Blood Urea Nitrogen 8 mg/dL (7-18) Creatinine 1.0 MG/DL (0.55-1.30) Estimat Glomerular Filtration Rate mL/min (>60) Glucose Level 120 MG/DL (74-106) H Calcium Level 8.5 MG/DL (8.5-10.1) Current Medications Medications (Trade) Dose Ordered Sig/Ally Route PRN Reason Start Time Stop Time Status Last Admin Dose Admin Acetaminophen (Tylenol) 650 mg Q4H PRN ORAL fever 06/19/18 20:45 07/19/18 20:44 06/20/18 20:33 Al Hydroxide/Mg Hydroxide (Mylanta II) 30 ml Q6H PRN ORAL dyspepsia 06/19/18 20:45 07/19/18 20:44 Albuterol/ Ipratropium (Albuterol/ Ipratropium) 3 ml Q4H PRN HHN Shortness of Breath 06/19/18 20:45 06/24/18 20:44 Amlodipine Besylate (Norvasc) 10 mg DAILY ORAL 06/20/18 09:00 07/20/18 08:59 06/21/18 08:51 Donepezil HCl (Aricept) 10 mg DAILY ORAL 06/20/18 09:00 07/20/18 08:59 06/21/18 08:50 Heparin Sodium (Porcine) (Heparin 5000 units/ml) 5,000 units EVERY 12 HOURS SUBQ 06/19/18 21:00 07/19/18 20:59 06/21/18 08:52 Levofloxacin (Levaquin) 250 mg DAILY ORAL 06/22/18 09:00 06/29/18 08:59 Nitroglycerin (Ntg) 0.4 mg Q5M PRN SL Prn Chest Pain 06/19/18 20:45 07/19/18 20:44 Ondansetron HCl (Zofran) 4 mg Q6H PRN IVP Nausea & Vomiting 06/19/18 20:45 07/19/18 20:44 Polyethylene Glycol (Miralax) 17 gm DAILYPRN PRN ORAL Constipation 06/19/18 20:45 07/19/18 20:44 Promethazine HCl/ Codeine (Phenergan with Codeine) 5 ml Q4H PRN ORAL For Cough 06/19/18 20:45 07/19/18 20:44 06/20/18 08:20 Temazepam (Restoril) 15 mg HSPRN PRN ORAL Insomnia 06/19/18 20:45 06/26/18 20:44 Peggy Hernandez M.D. Jun 21, 2018 18:24
[2018-06-22] VITALS: BP 110/42
[2018-06-22 04:00] VITALS: BP 116/61
[2018-06-22 06:45] LABS: BASOPHILS % (AUTO) 1.5 % (0.0-2.0); EOSINOPHILS % (AUTO) 6.1 % (0.0-3.0); HEMATOCRIT 40.9 % (37.0-47.0); HEMOGLOBIN 13.8 G/DL (12.0-16.0); LYMPHOCYTES % (AUTO) 20.7 % (20.0-45.0); MEAN CORPUSCULAR VOLUME 90 FL (80-99); MONOCYTES % (AUTO) 8.6 % (1.0-10.0); NEUTROPHILS % (AUTO) 63.1 % (45.0-75.0); PLATELET COUNT 169 K/UL (150-450); RED BLOOD COUNT 4.56 M/UL (4.20-5.40); RED CELL DISTRIBUTION WIDTH 11.1 % (11.6-14.8); WHITE BLOOD COUNT 6.1 K/UL (4.8-10.8)
[2018-06-22 07:01] LABS: ALANINE AMINOTRANSFERASE 27 U/L (12-78); ALBUMIN 2.8 G/DL (3.4-5.0); ALBUMIN/GLOBULIN RATIO 0.8 (1.0-2.7); ALKALINE PHOSPHATASE 61 U/L (46-116); ANION GAP 6 mmol/L (5-15); ASPARTATE AMINO TRANSFERASE 17 U/L (15-37); BILIRUBIN,TOTAL 0.7 MG/DL (0.2-1.0); BLOOD UREA NITROGEN 9 mg/dL (7-18); CALCIUM 9.1 MG/DL (8.5-10.1); CARBON DIOXIDE 30 MMOL/L (21-32); CHLORIDE 104 MMOL/L (98-107); POTASSIUM 4.1 MMOL/L (3.5-5.1); SODIUM 140 MMOL/L (136-145)
[2018-06-22 08:00] VITALS: BP 124/53
[2018-06-22] MEDS: Donepezil 10mg tab ORAL SCH (08:15)
[2018-06-22] MEDS: Heparin 5000 units/ml inj SUBQ SCH ×2 (08:20→20:25)
--- NOTE | 2018-06-22 10:42 | Diagnostic Imaging Report ---
Indication: Cough Technique: One view of the chest Comparison: 06/19/2018 Findings: Patient is rotated to the left. Again demonstrated is pleural-parenchymal scarring and parenchymal volume loss in the left upper lobe. Left perihilar bronchiectasis is again demonstrated. There is some scarring at the right lung base again demonstrated, as well as some right apical pleural and parenchymal scarring and volume loss No definite acute infiltrates or effusions. Findings are unchanged Impression: Unchanged, over one day, findings as above. No definite acute process
[2018-06-22 12:09] VITALS: BP 143/83
--- NOTE | 2018-06-22 13:58 | Pulmonology Progress Note ---
Assessment/Plan Problems: (1) Pneumonia (2) Bronchiectasis (3) Reactive airway disease (4) History of hypertension Assessment/Plan ENT to see, all reviewed check sputum titrate fio2 to sat of 92% monitor BP chest PT dvt prophylaxis. Subjective ROS Limited/Unobtainable: No HEENT: Repors: no symptoms Respiratory: Reports: no symptoms Allergies: Coded Allergies: No Known Allergies (Unverified , 05/08/13) Objective Last 24 Hour Vital Signs Date Time Temp Pulse Resp B/P (MAP) Pulse Ox O2 Delivery O2 Flow Rate FiO2 06/22/18 12:09 98.8 101 19 143/83 (103) 98 98.8 06/22/18 09:00 Nasal Cannula 2.0 Nasal Cannula 2.0 06/22/18 08:16 86 124/53 06/22/18 08:00 99.6 86 19 124/53 (76) 95 99.6 86 06/22/18 04:00 98.8 82 22 116/61 (79) 98 98.8 82 06/22/18 00:00 98.7 66 20 110/42 (64) 98 98.7 66 06/21/18 21:57 129/62 06/21/18 21:00 Nasal Cannula 2.0 Nasal Cannula 2.0 06/21/18 20:00 99.5 83 19 129/62 (84) 94 99.5 83 06/21/18 19:30 Nasal Cannula 2.0 28 06/21/18 19:30 95 Nasal Cannula 2.0 28 06/21/18 19:30 80 18 Nasal Cannula 2.0 28 06/21/18 16:00 97.8 82 20 131/63 (85) 95 97.8 82 Intake and Output 06/21/18 06/22/18 19:00 07:00 Intake Total 400 ml 360 ml Balance 400 ml 360 ml Intake Oral 400 ml 360 ml # Voids 3 3 Objective c/o throat pain General Appearance: WD/WN HEENT: normocephalic, atraumatic Respiratory/Chest: chest wall non-tender, normal breath sounds Breasts: no masses Cardiovascular: regularly irregular Abdomen: normal bowel sounds Skin: no ulcers Neurologic/Psychiatric: no motor/sensory deficits Microbiology Date/Time Source Procedure Growth Status 06/19/18 17:55 Blood Blood Culture - Preliminary NO GROWTH AFTER 48 HOURS Resulted 06/19/18 17:40 Blood Blood Culture - Preliminary NO GROWTH AFTER 48 HOURS Resulted Laboratory Tests 06/22/18 05:55: White Blood Count 6.1, Red Blood Count 4.56, Hemoglobin 13.8, Hematocrit 40.9, Mean Corpuscular Volume 90, Mean Corpuscular Hemoglobin 30.3, Mean Corpuscular Hemoglobin Concent 33.8, Red Cell Distribution Width 11.1L, Platelet Count 169, Mean Platelet Volume 7.5, Neutrophils (%) (Auto) 63.1, Lymphocytes (%) (Auto) 20.7, Monocytes (%) (Auto) 8.6, Eosinophils (%) (Auto) 6.1H, Basophils (%) (Auto ) 1.5, Sodium Level 140, Potassium Level 4.1, Chloride Level 104, Carbon Dioxide Level 30, Anion Gap 6, Blood Urea Nitrogen 9, Creatinine 1.0, Estimat Glomerular Filtration Rate , Glucose Level 113H, Calcium Level 9.1, Phosphorus Level 4.0, Magnesium Level 2.2, Total Bilirubin 0.7, Aspartate Amino Transf (AST /SGOT) 17, Alanine Aminotransferase (ALT/SGPT) 27, Alkaline Phosphatase 61, Total Protein 6.5, Albumin 2.8L, Globulin 3.7, Albumin/Globulin Ratio 0.8L Current Medications Medications (Trade) Dose Ordered Sig/Ally Route PRN Reason Start Time Stop Time Status Last Admin Dose Admin Acetaminophen (Tylenol) 650 mg Q4H PRN ORAL fever 06/19/18 20:45 07/19/18 20:44 06/20/18 20:33 Al Hydroxide/Mg Hydroxide (Mylanta II) 30 ml Q6H PRN ORAL dyspepsia 06/19/18 20:45 07/19/18 20:44 Albuterol/ Ipratropium (Albuterol/ Ipratropium) 3 ml Q4H PRN HHN Shortness of Breath 06/19/18 20:45 06/24/18 20:44 Amlodipine Besylate (Norvasc) 10 mg DAILY ORAL 06/20/18 09:00 07/20/18 08:59 06/22/18 08:16 Donepezil HCl (Aricept) 10 mg DAILY ORAL 06/20/18 09:00 07/20/18 08:59 06/22/18 08:15 Heparin Sodium (Porcine) (Heparin 5000 units/ml) 5,000 units EVERY 12 HOURS SUBQ 06/19/18 21:00 07/19/18 20:59 06/22/18 08:20 Levofloxacin (Levaquin) 250 mg DAILY ORAL 06/22/18 09:00 06/29/18 08:59 06/22/18 08:15 Nitroglycerin (Ntg) 0.4 mg Q5M PRN SL Prn Chest Pain 06/19/18 20:45 07/19/18 20:44 06/21/18 21:57 Ondansetron HCl (Zofran) 4 mg Q6H PRN IVP Nausea & Vomiting 06/19/18 20:45 07/19/18 20:44 Polyethylene Glycol (Miralax) 17 gm DAILYPRN PRN ORAL Constipation 06/19/18 20:45 07/19/18 20:44 Promethazine HCl/ Codeine (Phenergan with Codeine) 5 ml Q4H PRN ORAL For Cough 06/19/18 20:45 07/19/18 20:44 06/20/18 08:20 Temazepam (Restoril) 15 mg HSPRN PRN ORAL Insomnia 06/19/18 20:45 06/26/18 20:44 Jamie Griffin MD Jun 22, 2018 13:58
[2018-06-22] MEDS ORDERED: Varibar Thin Liquid powder 148gm MC PRN (14:15)
[2018-06-22] MEDS ORDERED: Barium EZ HD MC PRN (14:15)
[2018-06-22] MEDS ORDERED: Barium EZ Gas II granules MC PRN (14:15)
--- NOTE | 2018-06-22 14:16 | General Progress Note ---
Assessment/Plan Problem List: (1) COPD exacerbation ICD Codes: J44.1 - Chronic obstructive pulmonary disease with (acute) exacerbation SNOMED: 539275293 (2) Hypoxia ICD Codes: R09.02 - Hypoxemia SNOMED: 397120257 (3) Respiratory distress ICD Codes: R06.00 - Dyspnea, unspecified SNOMED: 211140566 (4) Reactive airway disease ICD Codes: J45.909 - Unspecified asthma, uncomplicated SNOMED: 907960789356 (5) Bronchiectasis ICD Codes: J47.9 - Bronchiectasis, uncomplicated SNOMED: 43640791 (6) History of hypertension ICD Codes: Z86.79 - Personal history of other diseases of the circulatory system SNOMED: 808426077 Status: stable, progressing Assessment/Plan o2 pulm tx abx dc plan w hh Subjective Constitutional: Reports: weakness Allergies: Coded Allergies: No Known Allergies (Unverified , 05/08/13) All Systems: reviewed and negative except above Subjective 02 nc sl sob Objective Last 24 Hour Vital Signs Date Time Temp Pulse Resp B/P (MAP) Pulse Ox O2 Delivery O2 Flow Rate FiO2 06/22/18 12:09 98.8 101 19 143/83 (103) 98 98.8 06/22/18 09:00 Nasal Cannula 2.0 Nasal Cannula 2.0 06/22/18 08:16 86 124/53 06/22/18 08:00 99.6 86 19 124/53 (76) 95 99.6 86 06/22/18 04:00 98.8 82 22 116/61 (79) 98 98.8 82 06/22/18 00:00 98.7 66 20 110/42 (64) 98 98.7 66 06/21/18 21:57 129/62 06/21/18 21:00 Nasal Cannula 2.0 Nasal Cannula 2.0 06/21/18 20:00 99.5 83 19 129/62 (84) 94 99.5 83 06/21/18 19:30 Nasal Cannula 2.0 28 06/21/18 19:30 95 Nasal Cannula 2.0 28 06/21/18 19:30 80 18 Nasal Cannula 2.0 28 06/21/18 16:00 97.8 82 20 131/63 (85) 95 97.8 82 Intake and Output 06/21/18 06/22/18 19:00 07:00 Intake Total 400 ml 360 ml Balance 400 ml 360 ml Intake Oral 400 ml 360 ml # Voids 3 3 Laboratory Tests 06/22/18 05:55: White Blood Count 6.1, Red Blood Count 4.56, Hemoglobin 13.8, Hematocrit 40.9, Mean Corpuscular Volume 90, Mean Corpuscular Hemoglobin 30.3, Mean Corpuscular Hemoglobin Concent 33.8, Red Cell Distribution Width 11.1L, Platelet Count 169, Mean Platelet Volume 7.5, Neutrophils (%) (Auto) 63.1, Lymphocytes (%) (Auto) 20.7, Monocytes (%) (Auto) 8.6, Eosinophils (%) (Auto) 6.1H, Basophils (%) (Auto ) 1.5, Sodium Level 140, Potassium Level 4.1, Chloride Level 104, Carbon Dioxide Level 30, Anion Gap 6, Blood Urea Nitrogen 9, Creatinine 1.0, Estimat Glomerular Filtration Rate , Glucose Level 113H, Calcium Level 9.1, Phosphorus Level 4.0, Magnesium Level 2.2, Total Bilirubin 0.7, Aspartate Amino Transf (AST /SGOT) 17, Alanine Aminotransferase (ALT/SGPT) 27, Alkaline Phosphatase 61, Total Protein 6.5, Albumin 2.8L, Globulin 3.7, Albumin/Globulin Ratio 0.8L Height (Feet): 5 Height (Inches): 0.00 Weight (Pounds): 131 General Appearance: lethargic EENT: normal ENT inspection Neck: normal alignment Cardiovascular: normal peripheral pulses, normal rate, regular rhythm Respiratory/Chest: chest wall non-tender, lungs clear, normal breath sounds Abdomen: normal bowel sounds, non tender, soft Extremities: normal inspection Edema: no edema noted Arm (L), no edema noted Arm (R), no edema noted Leg (L), no edema noted Leg (R), no edema noted Pedal (L), no edema noted Pedal (R), no edema noted Generalized Neurologic: responsive, motor weakness Skin: normal pigmentation, warm/dry Pal Britt DO Jun 22, 2018 14:16
--- NOTE | 2018-06-22 15:30 | GI Initial Consult Note ---
History of Present Illness General Date patient seen: Jun 22, 2018 Time patient seen: 15:23 Reason for Hospitalization: Abnormal Labs Referring physician: JOSELYN TROY Reason for Consultation: ODYNOPHAGIA Present Illness HPI This is an 82-year-old female, who lives at home and presents with one week of increased shortness of breath and slight fever, came to [facility], diagnosed with possible bronchiectasis and possible pneumonia, admitted to medical floor for further treatment. Currently, O2 NC, calm, slightly short of breath, no complaint. GI consulted for odynophagia. Per patient, she has been having painful swallowing the past 2 months in which she had to alter her diet. The patient was examined by ENT, noted to possibly have esophagitis. The patient was given Prilosec 20mg BID at home, but has had minimal effects. The patient has severe epigastric pain and tenderness upon palpation. She has no history of endoscopy , but has had a colonoscopy many years ago unable to recall. Patient had video swallow study today. Home Meds Active Scripts Albuterol Sulfate* (ALBUTEROL SULFATE MDI*) 8.5 Gm Hfa.aer.ad, 2 PUFF INH Q4H PRN for For Cough, #1 EA Prov:Mk Mann MD 04/17/15 Reported Medications Dicyclomine Hcl* (DICYCLOMINE HCL*) 10 Mg Capsule, 10 MG PO TID, CAP NEEDED FOR STOMACH PAIN 06/19/18 Amlodipine Besylate* (AMLODIPINE BESYLATE*) 10 Mg Tablet, 10 MG ORAL DAILY, TAB 06/19/18 Citalopram Hydrobromide* (CITALOPRAM HBR*) 10 Mg Tablet, 10 MG ORAL DAILY, TAB 06/19/18 Tramadol Hcl* (ULTRAM*) 50 Mg Tablet, 50 MG ORAL EVERY OTHER DAY PRN for For Pain, TAB 06/19/18 Ibuprofen* (MOTRIN*) 600 Mg Tablet, 600 MG ORAL DAILY PRN for For Pain, TAB 06/19/18 Escitalopram Oxalate* (LEXAPRO*) 10 Mg Tablet, 10 MG ORAL DAILY, TAB EVERY MORNING FOR 90 DAYS 06/19/18 Fluticasone/Salmeterol (Advair 250-50 Diskus) 1 Puffs Puffs, 1 PUFF INH EVERY 12 HOURS, EA 04/17/15 Albuterol Sulfate* (PROAIR HFA*) 8.5 Gm Hfa.aer.ad, 2 PUFFS INH Q6H, #8.5 GM 0 Refills 04/17/15 Ipratropium/Albuterol Sulfate (DuoNeb 0.5-3(2.5)mg/3ml) 3 Ml Ampul.neb, 3 ML HHN , EA 04/17/15 Donepezil Hcl* (DONEPEZIL HCL*) 10 Mg Tablet, 10 MG ORAL DAILY, TAB 05/15/13 Celecoxib* (CELEBREX*) 100 Mg Capsule, 100 MG ORAL DAILY 05/08/13 Omeprazole (PRILOSEC) 20 Mg Capsule.dr, 20 MG ORAL BID, TAB TAKE 2 CAPSULE BY ORAL ROUTE EVERY DAY 30 MINUTES TO 1 HOUR BEFORE A MEAL 05/08/13 Discontinued Reported Medications Nitroglycerin (NITROSTAT) 0.4 Mg Tab.subl, 0.4 MG SL Q5M X3 DOSES PRN for CHEST PAIN, #25 TAB 0 Refills 04/17/15 Prednisone (PREDNISONE) 10 Mg Tab.ds.pk, 10 MG PO DAILY, PACK 04/17/15 Lorazepam* (LORAZEPAM*) 1 Mg Tablet, 1 MG ORAL, TAB 04/17/15 Zolpidem Tartrate* (ZOLPIDEM TARTRATE*) 10 Mg Tablet, 10 MG ORAL BEDTIME PRN for Insomnia, TAB 0 Refills 04/17/15 Amitriptyline Hcl* (AMITRIPTYLINE HCL*) 25 Mg Tablet, 25 MG ORAL BEDTIME, TAB 04/17/15 Furosemide* (LASIX*) 20 Mg Tablet, 20 MG ORAL DAILY, TAB 05/08/13 Citalopram Hydrobromide* (CELEXA*) 20 Mg Tablet, 10 MG ORAL DAILY, TAB 05/08/13 Discontinued Scripts Azithromycin* (ZITHROMAX*) 250 Mg Tablet, 250 MG ORAL DAILY, #6 TAB Take two tablets by mouth today, then take one tablet by mouth daily for four days Prov:Mk Mann MD 04/17/15 Med list reviewed/reconciled: Yes Allergies: Coded Allergies: No Known Allergies (Unverified , 05/08/13) Patient History History Provided By: Patient, Family Member, Medical Record PMH Narrative Includes COPD, asthma. PAST SURGICAL HISTORY: None. Social History: Denies: smoking, alcohol use, drug use, other Review of Systems All Other Systems: negative except mentioned in HPI Physical Exam Vital Signs Date Time Temp Pulse Resp B/P (MAP) Pulse Ox O2 Delivery O2 Flow Rate FiO2 06/19/18 16:49 98.4 90 18 136/65 90 Room Air 98.4 06/19/18 19:15 2.0 06/19/18 20:45 28 Sp02 EP Interpretation: reviewed, normal Labs Laboratory Tests Test 06/22/18 05:55 White Blood Count 6.1 K/UL (4.8-10.8) Red Blood Count 4.56 M/UL (4.20-5.40) Hemoglobin 13.8 G/DL (12.0-16.0) Hematocrit 40.9 % (37.0-47.0) Mean Corpuscular Volume 90 FL (80-99) Mean Corpuscular Hemoglobin 30.3 PG (27.0-31.0) Mean Corpuscular Hemoglobin Concent 33.8 G/DL (32.0-36.0) Red Cell Distribution Width 11.1 % (11.6-14.8) L Platelet Count 169 K/UL (150-450) Mean Platelet Volume 7.5 FL (6.5-10.1) Neutrophils (%) (Auto) 63.1 % (45.0-75.0) Lymphocytes (%) (Auto) 20.7 % (20.0-45.0) Monocytes (%) (Auto) 8.6 % (1.0-10.0) Eosinophils (%) (Auto) 6.1 % (0.0-3.0) H Basophils (%) (Auto) 1.5 % (0.0-2.0) Sodium Level 140 MMOL/L (136-145) Potassium Level 4.1 MMOL/L (3.5-5.1) Chloride Level 104 MMOL/L (98-107) Carbon Dioxide Level 30 MMOL/L (21-32) Anion Gap 6 mmol/L (5-15) Blood Urea Nitrogen 9 mg/dL (7-18) Creatinine 1.0 MG/DL (0.55-1.30) Estimat Glomerular Filtration Rate mL/min (>60) Glucose Level 113 MG/DL (74-106) H Calcium Level 9.1 MG/DL (8.5-10.1) Phosphorus Level 4.0 MG/DL (2.5-4.9) Magnesium Level 2.2 MG/DL (1.8-2.4) Total Bilirubin 0.7 MG/DL (0.2-1.0) Aspartate Amino Transf (AST/SGOT) 17 U/L (15-37) Alanine Aminotransferase (ALT/SGPT) 27 U/L (12-78) Alkaline Phosphatase 61 U/L (46-116) Total Protein 6.5 G/DL (6.4-8.2) Albumin 2.8 G/DL (3.4-5.0) L Globulin 3.7 g/dL Albumin/Globulin Ratio 0.8 (1.0-2.7) L General Appearance: well appearing, no apparent distress, alert, obese Head: normocephalic EENT: PERRL/EOMI, normal ENT inspection Neck: supple Respiratory: normal breath sounds, no respiratory distress Cardiovascular: normal rate Gastrointestinal: normal inspection, non tender, soft, normal bowel sounds, non -distended Rectal: deferred Genitourinary: no CVA tenderness Musculoskeletal: normal inspection, back normal Neurologic: normal inspection, alert, oriented x3, responsive Psychiatric: normal inspection, judgement/insight normal, memory normal Skin: normal inspection, normal color, no rash, warm/dry, palpation normal, well hydrated Lymphatic: normal inspection, no adenopathy Current Medications Current Medications Medications (Trade) Dose Ordered Sig/Ally Route PRN Reason Start Time Stop Time Status Last Admin Dose Admin Acetaminophen (Tylenol) 650 mg Q4H PRN ORAL fever 06/19/18 20:45 07/19/18 20:44 06/20/18 20:33 Al Hydroxide/Mg Hydroxide (Mylanta II) 30 ml Q6H PRN ORAL dyspepsia 06/19/18 20:45 07/19/18 20:44 Albuterol/ Ipratropium (Albuterol/ Ipratropium) 3 ml Q4H PRN HHN Shortness of Breath 06/19/18 20:45 06/24/18 20:44 Amlodipine Besylate (Norvasc) 10 mg DAILY ORAL 06/20/18 09:00 07/20/18 08:59 06/22/18 08:16 Barium Sulfate (Barium EZ Gas II) 1 ea NOW PRN Radiology Procedure 06/22/18 14:15 06/22/18 16:15 Barium Sulfate (Barium EZ HD) 1 ea NOW PRN Radiology Procedure 06/22/18 14:15 06/22/18 16:15 Barium Sulfate (Varibar Thin Liquid powder) 148 gm NOW PRN Radiology Procedure 06/22/18 14:15 06/22/18 16:15 Donepezil HCl (Aricept) 10 mg DAILY ORAL 06/20/18 09:00 07/20/18 08:59 06/22/18 08:15 Heparin Sodium (Porcine) (Heparin 5000 units/ml) 5,000 units EVERY 12 HOURS SUBQ 06/19/18 21:00 07/19/18 20:59 06/22/18 08:20 Levofloxacin (Levaquin) 250 mg DAILY ORAL 06/22/18 09:00 06/29/18 08:59 06/22/18 08:15 Nitroglycerin (Ntg) 0.4 mg Q5M PRN SL Prn Chest Pain 06/19/18 20:45 07/19/18 20:44 06/21/18 21:57 Ondansetron HCl (Zofran) 4 mg Q6H PRN IVP Nausea & Vomiting 06/19/18 20:45 07/19/18 20:44 Pantoprazole (Protonix) 40 mg EVERY 12 HOURS ORAL 06/22/18 21:00 07/22/18 20:59 Polyethylene Glycol (Miralax) 17 gm DAILYPRN PRN ORAL Constipation 06/19/18 20:45 07/19/18 20:44 Promethazine HCl/ Codeine (Phenergan with Codeine) 5 ml Q4H PRN ORAL For Cough 06/19/18 20:45 07/19/18 20:44 06/20/18 08:20 Temazepam (Restoril) 15 mg HSPRN PRN ORAL Insomnia 06/19/18 20:45 06/26/18 20:44 GI: Plan Problems: (1) PUD (peptic ulcer disease) (2) Esophagitis (3) Odynophagia (4) GERD (gastroesophageal reflux disease) (5) Abdominal distension Plan EGD scheduled for tomorrow. - revert to FLD, NPO @ MN. - hold all blood thinners ppi BID, will add carafate esophagram r/o stricture fu videoswallow study fu labs Discussed with Dr. Ramirez. Thank you for this patient referral, we will follow. The patient was seen and examined at bedside and all new and available data was reviewed in the patients chart. I agree with the above findings, impression and plan. (Patient seen earlier today. Signature stamp does not reflect patient encounter time.). - MD Viktoriya Rae AnhNeelam DAVIDSON Jun 22, 2018 15:30
[2018-06-22 16:00] VITALS: BP 134/83
[2018-06-22] MEDS: Sucralfate 1gm tab ORAL SCH ×2 (17:11→20:32)
--- NOTE | 2018-06-22 17:53 | Infectious Diseases Prog Note ---
Assessment/Plan Assessment/Plan Assessment: Probable bronchitis -CXR 06/22: There is some scarring at the right lung base again demonstrated, as well as some right apical pleural and parenchymal scarring and volume loss No definite acute infiltrates or effusions. -CXR: Chronic lung disease with biapical pleural thickening and scarring and bronchiectasis in the left upper lung. Superimposed infection not excluded. Clinical correlation and follow-up exam recommended. Afebrile, no leukocytosis -u/a neg HTN Asthma/COPD Alzheimer Dementia Plan: -Continue PO levaquin abx d#4/5 -06/20 SP IV Vanco and Cefepime #2 -f/u cx -Monitor CBC/CMP, temperatures -aspiration precautions Thank you for this consultation. Will continue to follow along with you. Discussed with RN. Subjective Allergies: Coded Allergies: No Known Allergies (Unverified , 05/08/13) Subjective afebrile at 2l NC no leukocytosis Objective Vital Signs Last 24 Hour Vital Signs Date Time Temp Pulse Resp B/P (MAP) Pulse Ox O2 Delivery O2 Flow Rate FiO2 06/22/18 16:00 97.8 75 19 134/83 (100) 97 97.8 06/22/18 12:09 98.8 101 19 143/83 (103) 98 98.8 06/22/18 09:00 Nasal Cannula 2.0 Nasal Cannula 2.0 06/22/18 08:16 86 124/53 06/22/18 08:00 99.6 86 19 124/53 (76) 95 99.6 86 06/22/18 04:00 98.8 82 22 116/61 (79) 98 98.8 82 06/22/18 00:00 98.7 66 20 110/42 (64) 98 98.7 66 06/21/18 21:57 129/62 06/21/18 21:00 Nasal Cannula 2.0 Nasal Cannula 2.0 06/21/18 20:00 99.5 83 19 129/62 (84) 94 99.5 83 06/21/18 19:30 Nasal Cannula 2.0 28 06/21/18 19:30 95 Nasal Cannula 2.0 28 06/21/18 19:30 80 18 Nasal Cannula 2.0 28 Height (Feet): 5 Height (Inches): 0.00 Weight (Pounds): 131 Objective General Appearance: well appearing, no apparent distress Head: normocephalic, atraumatic Eyes: bilateral eye PERRL, bilateral eye EOMI ENT: hearing grossly normal, normal pharynx, TMs + canals normal, uvula midline Neck: full range of motion, supple, no meningismus, no bony tend Respiratory: lungs clear, normal breath sounds, no rhonchi, no respiratory distress, no retraction, no accessory muscle use Cardiovascular normal peripheral pulses, regular rate, rhythm, no edema, no gallop, no JVD, no murmur Gastrointestinal: normal bowel sounds, non tender, soft, no mass, no organomegaly, non-distended, no guarding, no hernia, no pulsatile mass, no rebound Genitourinary: no CVA tenderness Musculoskeletal: normal inspection Neurologic: oriented x3, responsive, promotional advertising assistant III-XII nml as tested, motor strength/ tone normal, sensory intact Skin: normal color, no rash, warm/dry, palpation normal Microbiology Date/Time Source Procedure Growth Status 06/19/18 17:55 Blood Blood Culture - Preliminary NO GROWTH AFTER 48 HOURS Resulted Laboratory Tests Test 06/22/18 05:55 White Blood Count 6.1 K/UL (4.8-10.8) Red Blood Count 4.56 M/UL (4.20-5.40) Hemoglobin 13.8 G/DL (12.0-16.0) Hematocrit 40.9 % (37.0-47.0) Mean Corpuscular Volume 90 FL (80-99) Mean Corpuscular Hemoglobin 30.3 PG (27.0-31.0) Mean Corpuscular Hemoglobin Concent 33.8 G/DL (32.0-36.0) Red Cell Distribution Width 11.1 % (11.6-14.8) L Platelet Count 169 K/UL (150-450) Mean Platelet Volume 7.5 FL (6.5-10.1) Neutrophils (%) (Auto) 63.1 % (45.0-75.0) Lymphocytes (%) (Auto) 20.7 % (20.0-45.0) Monocytes (%) (Auto) 8.6 % (1.0-10.0) Eosinophils (%) (Auto) 6.1 % (0.0-3.0) H Basophils (%) (Auto) 1.5 % (0.0-2.0) Sodium Level 140 MMOL/L (136-145) Potassium Level 4.1 MMOL/L (3.5-5.1) Chloride Level 104 MMOL/L (98-107) Carbon Dioxide Level 30 MMOL/L (21-32) Anion Gap 6 mmol/L (5-15) Blood Urea Nitrogen 9 mg/dL (7-18) Creatinine 1.0 MG/DL (0.55-1.30) Estimat Glomerular Filtration Rate mL/min (>60) Glucose Level 113 MG/DL (74-106) H Calcium Level 9.1 MG/DL (8.5-10.1) Phosphorus Level 4.0 MG/DL (2.5-4.9) Magnesium Level 2.2 MG/DL (1.8-2.4) Total Bilirubin 0.7 MG/DL (0.2-1.0) Aspartate Amino Transf (AST/SGOT) 17 U/L (15-37) Alanine Aminotransferase (ALT/SGPT) 27 U/L (12-78) Alkaline Phosphatase 61 U/L (46-116) Total Protein 6.5 G/DL (6.4-8.2) Albumin 2.8 G/DL (3.4-5.0) L Globulin 3.7 g/dL Albumin/Globulin Ratio 0.8 (1.0-2.7) L Current Medications Medications (Trade) Dose Ordered Sig/Ally Route PRN Reason Start Time Stop Time Status Last Admin Dose Admin Acetaminophen (Tylenol) 650 mg Q4H PRN ORAL fever 06/19/18 20:45 07/19/18 20:44 06/20/18 20:33 Al Hydroxide/Mg Hydroxide (Mylanta II) 30 ml Q6H PRN ORAL dyspepsia 06/19/18 20:45 07/19/18 20:44 Albuterol/ Ipratropium (Albuterol/ Ipratropium) 3 ml Q4H PRN HHN Shortness of Breath 06/19/18 20:45 06/24/18 20:44 Amlodipine Besylate (Norvasc) 10 mg DAILY ORAL 06/20/18 09:00 07/20/18 08:59 06/22/18 08:16 Donepezil HCl (Aricept) 10 mg DAILY ORAL 06/20/18 09:00 07/20/18 08:59 06/22/18 08:15 Heparin Sodium (Porcine) (Heparin 5000 units/ml) 5,000 units EVERY 12 HOURS SUBQ 06/19/18 21:00 07/19/18 20:59 06/22/18 08:20 Levofloxacin (Levaquin) 250 mg DAILY ORAL 06/22/18 09:00 06/23/18 23:59 06/22/18 08:15 Nitroglycerin (Ntg) 0.4 mg Q5M PRN SL Prn Chest Pain 06/19/18 20:45 07/19/18 20:44 06/21/18 21:57 Ondansetron HCl (Zofran) 4 mg Q6H PRN IVP Nausea & Vomiting 06/19/18 20:45 07/19/18 20:44 Pantoprazole (Protonix) 40 mg EVERY 12 HOURS ORAL 06/22/18 21:00 07/22/18 20:59 Polyethylene Glycol (Miralax) 17 gm DAILYPRN PRN ORAL Constipation 06/19/18 20:45 07/19/18 20:44 Promethazine HCl/ Codeine (Phenergan with Codeine) 5 ml Q4H PRN ORAL For Cough 06/19/18 20:45 07/19/18 20:44 06/20/18 08:20 Sucralfate (Carafate) 1 gm AC+HS ORAL 06/22/18 16:30 07/22/18 16:29 06/22/18 17:11 Temazepam (Restoril) 15 mg HSPRN PRN ORAL Insomnia 06/19/18 20:45 06/26/18 20:44 Peggy Hernandez M.D. Jun 22, 2018 17:53
[2018-06-22 19:49] VITALS: BP 111/50
--- NOTE | 2018-06-22 22:00 | Operative Note - Dictated ---
DATE OF OPERATION: 06/22/2018 SURGEON: Darren Gregory M.D. RECORDS ASSISTANT: None. INDICATION FOR PROCEDURE: The patient with known reflux and complains of pain at the level of the cricoid on the right side. PREOPERATIVE DIAGNOSIS: Gastroesophageal reflux disease. POSTOPERATIVE DIAGNOSIS: Gastroesophageal reflux disease. FINDINGS: 2/4 red arytenoids. PROCEDURE: Nasolaryngeal fiberoptic scope. TECHNIQUE: The patient was prepped and draped in the usual manner. Time-out was performed. All agreed as to the procedure. The scope was passed through the right nostril with minimal difficulty with good visualization all the way down to visualize the vocal cords. The scope was then removed. Sponge and needle count was correct. ESTIMATED BLOOD LOSS: Zero. COUNTS: None. DRAINS: None. Darren Gregory M.D. DR: HARRIS JOB#: [id number] CC: [id number]
[2018-06-23] VITALS (13 sets, daily range): BP systolic 114–140; BP diastolic 55–72
[2018-06-23] MEDS: Sucralfate 1gm tab ORAL SCH ×4 (05:59→21:07)
[2018-06-23 07:30] LABS: BASOPHILS % (AUTO) 1.2 % (0.0-2.0); EOSINOPHILS % (AUTO) 7.2 % (0.0-3.0); HEMOGLOBIN 13.8 G/DL (12.0-16.0); LYMPHOCYTES % (AUTO) 17.9 % (20.0-45.0); MEAN CORPUSCULAR VOLUME 90 FL (80-99); MONOCYTES % (AUTO) 8.1 % (1.0-10.0); NEUTROPHILS % (AUTO) 65.6 % (45.0-75.0); PLATELET COUNT 154 K/UL (150-450); RED BLOOD COUNT 4.45 M/UL (4.20-5.40); RED CELL DISTRIBUTION WIDTH 10.8 % (11.6-14.8); WHITE BLOOD COUNT 5.7 K/UL (4.8-10.8)
[2018-06-23 07:44] LABS: INR 0.9 (0.9-1.1)
[2018-06-23 07:52] LABS: ANION GAP 6 mmol/L (5-15); BLOOD UREA NITROGEN 9 mg/dL (7-18); CALCIUM 8.6 MG/DL (8.5-10.1); CARBON DIOXIDE 30 MMOL/L (21-32); CHLORIDE 104 MMOL/L (98-107); SODIUM 140 MMOL/L (136-145)
[2018-06-23] MEDS: Heparin 5000 units/ml inj SUBQ SCH ×2 (08:06→21:12)
[2018-06-23] MEDS: Donepezil 10mg tab ORAL SCH (08:06)
--- NOTE | 2018-06-23 10:30 | Consultation ---
DATE OF CONSULTATION: 06/22/2018 HEAD AND NECK SURGERY/ENT CONSULTATION CONSULTING PHYSICIAN: Darren Gregory M.D. REQUESTING PHYSICIAN: Pal Britt D.O. INDICATION FOR CONSULTATION: An 82-year-old female, who is complaining of the last week or so of discomfort with swallowing. Speech pathologist had done a swallowing study showing some issues and some reflux. At that time, the patient pointed to above her thyroid on the right side. Now she is pointing to below her thyroid on the right side. Speech pathology was present with me during the exam. 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 MEDICATIONS: She is taking vancomycin, benazepril, heparin, Tylenol, Zofran, temazepam, levofloxacin, MiraLAX, albuterol. ALLERGIES: No known drug allergies. PAST SURGICAL HISTORY: Cholecystectomy, hysterectomy. PHYSICAL EXAMINATION: VITAL SIGNS: Height 152.4 cm, weight 59.421 kg, BMI 25.6. HEENT: Head normocephalic. Eyes, PERRLA, EOMI. Lips, tongue . Mouth normal. NECK: She has some tenderness, but it moves around on her neck, but it is always on the right side. DIAGNOSTIC DATA: Fiberoptic laryngoscopy, arytenoids 2/4 remainder was normal. ASSESSMENT: This is reflux. In addition, there may be some issues related to arthritis and cervical spine issues. I do not see that that has ever been worked up, but perhaps that should be looked at and may explain some of her discomfort. I have discussed this with as well as with GI physician to take a look at the patient. Thank you very much for asking my opinion in the care and treatment of this patient. Darren Gregory M.D. DR: Annamarie JOB#: [id number] CC: EUGENE
--- NOTE | 2018-06-23 10:31 | Anethesia Preoperative Eval ---
Anesthesia Pre-op PMH/ROS General Date of Evaluation: Jun 23, 2018 Anesthesiologist: Nakul ASA Score: ASA 3 Mallampati Score Class I : Soft palate, uvula, fauces, pillars visible Class II: Soft palate, uvula, fauces visible Class III: Soft palate, base of uvula visible Class IV: Only hard plate visible Mallampati Classification: Class II Surgeon: Samina Diagnosis: GI bleed Surgical Procedure: EGD Anesthesia History: none Family History: no anesthesia problems Allergies: Coded Allergies: No Known Allergies (Unverified , 05/08/13) Medications: see eMAR Past Medical History Cardiovascular: Reports: HTN; Denies: CAD, CO, valve dz, arrhythmia, other Pulmonary: Reports: asthma - +, COPD; Denies: KIMBERLY, other Gastrointestinal/Genitourinary: Reports: other - endometriosis; Denies: GERD, CRI, ESRD Neurologic/Psychiatric: Reports: depression/anxiety, other - alzheimers; Denies: dementia, CVA, TIA Endocrine: Denies: DM, hypothyroidism, steroids, other HEENT: Denies: cataract (L), cataract (R), glaucoma, RENO-SPARKS (L), RENO-SPARKS (R), other Hematology/Immune: Denies: anemia, DVT, bleeding disorder, other Musculoskeletal/Integumentary: Reports: OA; Denies: RA, DJD, DDD, edema, other PSxH Narrative: bialteral cat, lap radha, SHAUN Anesthesia Pre-op Phys. Exam Physician Exam Last Vital Signs Date Time Temp Pulse Resp B/P (MAP) Pulse Ox O2 Delivery O2 Flow Rate FiO2 06/23/18 08:00 97.2 87 20 118/57 (77) 99 97.2 87 06/22/18 21:00 Nasal Cannula 2.0 Nasal Cannula 2.0 06/22/18 20:04 28 Constitutional: NAD Cardiovascular: RRR Respiratory: CTA Airway Exam Mallampati Score: Class II MO: full ROM: full Anesthesia Pre-op A/P Labs Hematology Test 06/23/18 06:25 White Blood Count 5.7 K/UL (4.8-10.8) Red Blood Count 4.45 M/UL (4.20-5.40) Hemoglobin 13.8 G/DL (12.0-16.0) Hematocrit 40.0 % (37.0-47.0) Mean Corpuscular Volume 90 FL (80-99) Mean Corpuscular Hemoglobin 31.1 PG (27.0-31.0) H Mean Corpuscular Hemoglobin Concent 34.5 G/DL (32.0-36.0) Red Cell Distribution Width 10.8 % (11.6-14.8) L Platelet Count 154 K/UL (150-450) Mean Platelet Volume 7.9 FL (6.5-10.1) Neutrophils (%) (Auto) 65.6 % (45.0-75.0) Lymphocytes (%) (Auto) 17.9 % (20.0-45.0) L Monocytes (%) (Auto) 8.1 % (1.0-10.0) Eosinophils (%) (Auto) 7.2 % (0.0-3.0) H Basophils (%) (Auto) 1.2 % (0.0-2.0) Coagulation Test 06/23/18 06:25 Prothrombin Time 9.8 SEC (9.30-11.50) Prothromb Time International Ratio 0.9 (0.9-1.1) Activated Partial Thromboplast Time 27 SEC (23-33) Chemistry Test 06/23/18 06:25 Sodium Level 140 MMOL/L (136-145) Potassium Level 4.0 MMOL/L (3.5-5.1) Chloride Level 104 MMOL/L (98-107) Carbon Dioxide Level 30 MMOL/L (21-32) Anion Gap 6 mmol/L (5-15) Blood Urea Nitrogen 9 mg/dL (7-18) Creatinine 1.0 MG/DL (0.55-1.30) Estimat Glomerular Filtration Rate mL/min (>60) Glucose Level 112 MG/DL (74-106) H Calcium Level 8.6 MG/DL (8.5-10.1) Studies Pre-op Studies: EKG - sr Risk Assessment & Plan Assessment: ASA III Plan: MAC Status Change Before Surgery: No Pre-Antibiotics Drug: N/A Denise Winters MD Jun 23, 2018 10:31
[2018-06-23] MEDS ORDERED: LR 1000ml 1,000 ML IVLG SCH (10:32)
--- NOTE | 2018-06-23 10:41 | Immediate Post-Op Evaluation ---
Immediate Post-Op Evalulation Immediate Post-Op Evalulation Procedure: EGD Date of Evaluation: Jun 23, 2018 Time of Evaluation: 11:15 IV Fluids: 300 Blood Products: 0 Estimated Blood Loss: 0 Urinary Output: 0 Blood Pressure Systolic: 124 Blood Pressure Diastolic: 72 Pulse Rate: 84 Respiratory Rate: 16 O2 Sat by Pulse Oximetry: 99 Temperature (Fahrenheit): 97.3 Pain Score (1-10): 0 Nausea: No Vomiting: No Complications 0 Patient Status: awake, reacts, patent, none Hydration Status: adequate Drug: N/A Denise Winters MD Jun 23, 2018 10:41
--- NOTE | 2018-06-23 10:42 | 48 Hour Post Anesthesia Eval ---
Post Anesthesia Evaluation Procedure: EGD Date of Evaluation: Jun 23, 2018 Airway: patent Nausea: No Vomiting: No Hydration Status: adequate Cardiopulmonary Status: at baseline Mental Status/LOC: patient returned to baseline Post-Anesthesia Complications: 0 Follow-up care needed: N/A - further care as per primary team Denise Winters MD Jun 23, 2018 10:42
[2018-06-23] MEDS ORDERED: Hydromorphone 0.5mg/0.5ml inj IVP PRN (10:45)
[2018-06-23] MEDS ORDERED: fentaNYL 100 mcg/2 mL IV PRN (10:45)
[2018-06-23] MEDS ORDERED: DiphenhydrAMINE 50mg/ml Inj IVP PRN (10:45)
[2018-06-23] MEDS ORDERED: Labetalol 5mg/ml 20ml vial IV PRN (10:45)
--- NOTE | 2018-06-23 10:54 | General Progress Note ---
Assessment/Plan Assessment/Plan Assessment - odynophagia - hoarse voice, suspected laryngitis - r/o GERD - peripheral eosinophilia Recommendations - check stool O&P - NPO - PPI - EGD today Subjective Allergies: Coded Allergies: No Known Allergies (Unverified , 05/08/13) Subjective seen in GI lab c/o cervical level odynophagia says it affects her voice d/w patient re EGD all answered Objective Last 24 Hour Vital Signs Date Time Temp Pulse Resp B/P (MAP) Pulse Ox O2 Delivery O2 Flow Rate FiO2 06/23/18 08:00 97.2 87 20 118/57 (77) 99 97.2 87 06/23/18 05:04 96.4 95 20 114/55 (74) 97 96.4 95 06/23/18 04:00 96.4 95 20 114/55 (74) 98 96.4 95 06/23/18 00:00 96.1 85 20 115/65 (82) 98 96.1 85 06/22/18 21:00 Nasal Cannula 2.0 Nasal Cannula 2.0 06/22/18 20:04 Nasal Cannula 2.0 28 06/22/18 20:04 83 18 Nasal Cannula 2.0 28 06/22/18 20:04 96 Nasal Cannula 2.0 28 06/22/18 19:49 97.2 80 20 111/50 (70) 97 97.2 80 06/22/18 16:00 97.8 75 19 134/83 (100) 97 97.8 06/22/18 12:09 98.8 101 19 143/83 (103) 98 98.8 Intake and Output 06/22/18 06/23/18 19:00 07:00 Intake Total 650 ml Balance 650 ml Other 650 ml # Voids 4 5 # Bowel Movements 2 Laboratory Tests 06/23/18 06:25: White Blood Count 5.7, Red Blood Count 4.45, Hemoglobin 13.8, Hematocrit 40.0, Mean Corpuscular Volume 90, Mean Corpuscular Hemoglobin 31.1H, Mean Corpuscular Hemoglobin Concent 34.5, Red Cell Distribution Width 10.8L, Platelet Count 154, Mean Platelet Volume 7.9, Neutrophils (%) (Auto) 65.6, Lymphocytes (%) (Auto) 17.9L, Monocytes (%) (Auto) 8.1, Eosinophils (%) (Auto) 7.2H, Basophils (%) ( Auto) 1.2, Prothrombin Time 9.8, Prothromb Time International Ratio 0.9, Activated Partial Thromboplast Time 27, Sodium Level 140, Potassium Level 4.0, Chloride Level 104, Carbon Dioxide Level 30, Anion Gap 6, Blood Urea Nitrogen 9 , Creatinine 1.0, Estimat Glomerular Filtration Rate , Glucose Level 112H, Calcium Level 8.6 Height (Feet): 5 Height (Inches): 5.00 Weight (Pounds): 131 Objective NCAT supple CTA RR abd soft no edema non focal Alyssa Haas MD Jun 23, 2018 10:54
--- NOTE | 2018-06-23 10:55 | Pre-Procedure Note/Attestation ---
Pre-Procedure Note/Attestation Complete Prior to Procedure Planned Procedure: not applicable Procedure Narrative: egd Indications for Procedure Pre-Operative Diagnosis: abd pain Attestation I attest that I discussed the nature of the procedure; its benefits; risks and complications; and alternatives (and the risks and benefits of such alternatives ), prior to the procedure, with the patient (or the patient's legal entry level marketing representative). I attest that, if there was a reasonable possibility of needing a blood transfusion, the patient (or the patient's legal entry level marketing representative) was given the [facility] standardized written summary, pursuant to the Brandon Keanu Blood Safety Act ([place] Health and Safety Code # 1645, as amended). I attest that I re-evaluated the patient just prior to the surgery and that there has been no change in the patient's H&P, except as documented below: Alyssa Haas MD Jun 23, 2018 10:55
[2018-06-23] MEDS ORDERED: Propofol 200mg/20ml IV ONE (11:00)
[2018-06-23] MEDS ORDERED: LR 1000ml ONE (11:00)
[2018-06-23] MEDS ORDERED: Lidocaine 1% MPF 10mg/ml 5ml ONE (11:00)
--- NOTE | 2018-06-23 11:16 | General Progress Note ---
Assessment/Plan Assessment/Plan Assessment - odynophagia - hoarse voice, suspected laryngitis - r/o GERD,eosinophilic esophagitis - peripheral eosinophilia - r/o O&P Recommendations - EGD today - check stool O&P Subjective Allergies: Coded Allergies: No Known Allergies (Unverified , 05/08/13) Subjective seen in GI lab c/o cervical level odynophagia says it affects her voice d/w patient re EGD all answered Objective Last 24 Hour Vital Signs Date Time Temp Pulse Resp B/P (MAP) Pulse Ox O2 Delivery O2 Flow Rate FiO2 06/23/18 08:00 97.2 87 20 118/57 (77) 99 97.2 87 06/23/18 05:04 96.4 95 20 114/55 (74) 97 96.4 95 06/23/18 04:00 96.4 95 20 114/55 (74) 98 96.4 95 06/23/18 00:00 96.1 85 20 115/65 (82) 98 96.1 85 06/22/18 21:00 Nasal Cannula 2.0 Nasal Cannula 2.0 06/22/18 20:04 Nasal Cannula 2.0 28 06/22/18 20:04 83 18 Nasal Cannula 2.0 28 06/22/18 20:04 96 Nasal Cannula 2.0 28 06/22/18 19:49 97.2 80 20 111/50 (70) 97 97.2 80 06/22/18 16:00 97.8 75 19 134/83 (100) 97 97.8 06/22/18 12:09 98.8 101 19 143/83 (103) 98 98.8 Intake and Output 06/22/18 06/23/18 19:00 07:00 Intake Total 650 ml Balance 650 ml Other 650 ml # Voids 4 5 # Bowel Movements 2 Laboratory Tests 06/23/18 06:25: White Blood Count 5.7, Red Blood Count 4.45, Hemoglobin 13.8, Hematocrit 40.0, Mean Corpuscular Volume 90, Mean Corpuscular Hemoglobin 31.1H, Mean Corpuscular Hemoglobin Concent 34.5, Red Cell Distribution Width 10.8L, Platelet Count 154, Mean Platelet Volume 7.9, Neutrophils (%) (Auto) 65.6, Lymphocytes (%) (Auto) 17.9L, Monocytes (%) (Auto) 8.1, Eosinophils (%) (Auto) 7.2H, Basophils (%) ( Auto) 1.2, Prothrombin Time 9.8, Prothromb Time International Ratio 0.9, Activated Partial Thromboplast Time 27, Sodium Level 140, Potassium Level 4.0, Chloride Level 104, Carbon Dioxide Level 30, Anion Gap 6, Blood Urea Nitrogen 9 , Creatinine 1.0, Estimat Glomerular Filtration Rate , Glucose Level 112H, Calcium Level 8.6 Height (Feet): 5 Height (Inches): 5.00 Weight (Pounds): 131 Objective NCAT supple CTA RR abd soft no edema non focal Alyssa Haas MD Jun 23, 2018 11:16
--- NOTE | 2018-06-23 11:25 | Endoscopy Procedure Note ---
Endoscopy Procedure Note General Indication for Procedure: odynophagia Procedures Performed: EGD Operative Findings/Diagnosis: 1-2 cm HH, s/p RND bx of lower and mid esophagus Specimen: yes Pt Tolerated Procedure Well: Yes Estimated Blood Loss: none Anesthesia Anesthesiologist: see report Anesthesia: MAC Medications Medication Given: see anesthesia record Inserted Devices Implant(s) used?: No GI Core Measures 50 yrs or older w/o bx or poly: Not Applicable 10yrs. F/U not recommended: Not Applicable If not recommended, why?: Alyssa Haas MD Jun 23, 2018 11:25
--- NOTE | 2018-06-23 11:26 | Brief Operative Note ---
Immediate Post Operative Note Operative Note Chief Complaint: odynophagia Pre-op Diagnosis: abd pain Procedure: EGD , Bx Post-op Diagnosis: 1-2 cm HH, s/p RND bx of esophagus Post-op Diagnosis: same as pre-op plus Surgeon: teresa Anesthesiologist: see report Anesthesia: MAC Specimen: yes Complications: none Condition: stable Fluids: recorded Estimated Blood Loss: none Drains: none Implant(s) used?: No Alyssa Haas MD Jun 23, 2018 11:26
--- NOTE | 2018-06-23 13:40 | General Progress Note ---
Assessment/Plan Problem List: (1) COPD exacerbation ICD Codes: J44.1 - Chronic obstructive pulmonary disease with (acute) exacerbation SNOMED: 134136624 (2) Hypoxia ICD Codes: R09.02 - Hypoxemia SNOMED: 946374365 (3) Respiratory distress ICD Codes: R06.00 - Dyspnea, unspecified SNOMED: 133043784 (4) Reactive airway disease ICD Codes: J45.909 - Unspecified asthma, uncomplicated SNOMED: 916435219163 (5) Bronchiectasis ICD Codes: J47.9 - Bronchiectasis, uncomplicated SNOMED: 30243866 (6) History of hypertension ICD Codes: Z86.79 - Personal history of other diseases of the circulatory system SNOMED: 522605034 Status: stable, progressing Assessment/Plan o2 pulm tx abx cbc bmp am dc plan w hh Subjective Constitutional: Reports: weakness Allergies: Coded Allergies: CHOCOLATE FLAVOR (Verified Allergy, Unknown, 06/23/18) patient will have diarrhea All Systems: reviewed and negative except above Subjective 02 nc sl sob Objective Last 24 Hour Vital Signs Date Time Temp Pulse Resp B/P (MAP) Pulse Ox O2 Delivery O2 Flow Rate FiO2 06/23/18 11:25 83 16 131/67 99 Nasal Cannula 3 06/23/18 11:24 207.1 84 16 99 06/23/18 11:15 84 16 137/69 99 Nasal Cannula 3 06/23/18 11:10 97.3 84 16 124/72 99 Nasal Cannula 3 97.3 06/23/18 09:00 Nasal Cannula 2.0 Nasal Cannula 2.0 06/23/18 08:02 99 Nasal Cannula 2.0 28 06/23/18 08:02 Nasal Cannula 2.0 28 06/23/18 08:02 82 18 Nasal Cannula 2.0 28 06/23/18 08:00 97.2 87 20 118/57 (77) 99 97.2 87 06/23/18 05:04 96.4 95 20 114/55 (74) 97 96.4 95 06/23/18 04:00 96.4 95 20 114/55 (74) 98 96.4 95 06/23/18 00:00 96.1 85 20 115/65 (82) 98 96.1 85 06/22/18 21:00 Nasal Cannula 2.0 Nasal Cannula 2.0 06/22/18 20:04 Nasal Cannula 2.0 28 06/22/18 20:04 83 18 Nasal Cannula 2.0 28 06/22/18 20:04 96 Nasal Cannula 2.0 28 06/22/18 19:49 97.2 80 20 111/50 (70) 97 97.2 80 06/22/18 16:00 97.8 75 19 134/83 (100) 97 97.8 Intake and Output 06/22/18 06/23/18 19:00 07:00 Intake Total 650 ml Balance 650 ml Other 650 ml # Voids 4 5 # Bowel Movements 2 Laboratory Tests 06/23/18 06:25: White Blood Count 5.7, Red Blood Count 4.45, Hemoglobin 13.8, Hematocrit 40.0, Mean Corpuscular Volume 90, Mean Corpuscular Hemoglobin 31.1H, Mean Corpuscular Hemoglobin Concent 34.5, Red Cell Distribution Width 10.8L, Platelet Count 154, Mean Platelet Volume 7.9, Neutrophils (%) (Auto) 65.6, Lymphocytes (%) (Auto) 17.9L, Monocytes (%) (Auto) 8.1, Eosinophils (%) (Auto) 7.2H, Basophils (%) ( Auto) 1.2, Prothrombin Time 9.8, Prothromb Time International Ratio 0.9, Activated Partial Thromboplast Time 27, Sodium Level 140, Potassium Level 4.0, Chloride Level 104, Carbon Dioxide Level 30, Anion Gap 6, Blood Urea Nitrogen 9 , Creatinine 1.0, Estimat Glomerular Filtration Rate , Glucose Level 112H, Calcium Level 8.6 Height (Feet): 5 Height (Inches): 5.00 Weight (Pounds): 131 General Appearance: lethargic EENT: normal ENT inspection Neck: normal alignment Cardiovascular: normal peripheral pulses, normal rate, regular rhythm Respiratory/Chest: chest wall non-tender, decreased breath sounds Abdomen: normal bowel sounds, non tender, soft Extremities: normal inspection Edema: no edema noted Arm (L), no edema noted Arm (R), no edema noted Leg (L), no edema noted Leg (R), no edema noted Pedal (L), no edema noted Pedal (R), no edema noted Generalized Neurologic: responsive, motor weakness Skin: normal pigmentation, warm/dry Pal Britt DO Jun 23, 2018 13:40
--- NOTE | 2018-06-23 14:19 | Pulmonology Progress Note ---
Assessment/Plan Problems: (1) Pneumonia (2) Bronchiectasis (3) Reactive airway disease (4) History of hypertension Assessment/Plan ENT, Dr. Gregory saw the pt, all reviewed check sputum titrate fio2 to sat of 92% monitor BP chest PT dvt prophylaxis. Subjective ROS Limited/Unobtainable: No Constitutional: Reports: no symptoms HEENT: Repors: no symptoms Respiratory: Reports: no symptoms Allergies: Coded Allergies: CHOCOLATE FLAVOR (Verified Allergy, Unknown, 06/23/18) patient will have diarrhea Objective Last 24 Hour Vital Signs Date Time Temp Pulse Resp B/P (MAP) Pulse Ox O2 Delivery O2 Flow Rate FiO2 06/23/18 12:00 97.9 77 20 124/59 (80) 98 97.9 77 06/23/18 11:25 83 16 131/67 99 Nasal Cannula 3 06/23/18 11:24 207.1 84 16 99 06/23/18 11:15 84 16 137/69 99 Nasal Cannula 3 06/23/18 11:10 97.3 84 16 124/72 99 Nasal Cannula 3 97.3 06/23/18 09:00 Nasal Cannula 2.0 Nasal Cannula 2.0 06/23/18 08:02 99 Nasal Cannula 2.0 28 06/23/18 08:02 Nasal Cannula 2.0 28 06/23/18 08:02 82 18 Nasal Cannula 2.0 28 06/23/18 08:00 97.2 87 20 118/57 (77) 99 97.2 87 06/23/18 05:04 96.4 95 20 114/55 (74) 97 96.4 95 06/23/18 04:00 96.4 95 20 114/55 (74) 98 96.4 95 06/23/18 00:00 96.1 85 20 115/65 (82) 98 96.1 85 06/22/18 21:00 Nasal Cannula 2.0 Nasal Cannula 2.0 06/22/18 20:04 Nasal Cannula 2.0 28 06/22/18 20:04 83 18 Nasal Cannula 2.0 28 06/22/18 20:04 96 Nasal Cannula 2.0 28 06/22/18 19:49 97.2 80 20 111/50 (70) 97 97.2 80 06/22/18 16:00 97.8 75 19 134/83 (100) 97 97.8 Intake and Output 7/25/18 7/26/18 19:00 07:00 Intake Total 650 ml Balance 650 ml Other 650 ml # Voids 4 5 # Bowel Movements 2 Objective egd with biopsy done General Appearance: WD/WN HEENT: normocephalic Respiratory/Chest: chest wall non-tender, lungs clear Breasts: no masses Cardiovascular: normal peripheral pulses, normal rate Abdomen: normal bowel sounds, soft, non tender Genitourinary: normal external genitalia Extremities: no cyanosis Neurologic/Psychiatric: events administrative assistant II-XII grossly normal Microbiology Date/Time Source Procedure Growth Status 06/21/18 18:20 Sputum Gram Stain - Final Resulted 06/21/18 18:20 Sputum Sputum Culture Pending Resulted Laboratory Tests 06/23/18 06:25: White Blood Count 5.7, Red Blood Count 4.45, Hemoglobin 13.8, Hematocrit 40.0, Mean Corpuscular Volume 90, Mean Corpuscular Hemoglobin 31.1H, Mean Corpuscular Hemoglobin Concent 34.5, Red Cell Distribution Width 10.8L, Platelet Count 154, Mean Platelet Volume 7.9, Neutrophils (%) (Auto) 65.6, Lymphocytes (%) (Auto) 17.9L, Monocytes (%) (Auto) 8.1, Eosinophils (%) (Auto) 7.2H, Basophils (%) ( Auto) 1.2, Prothrombin Time 9.8, Prothromb Time International Ratio 0.9, Activated Partial Thromboplast Time 27, Sodium Level 140, Potassium Level 4.0, Chloride Level 104, Carbon Dioxide Level 30, Anion Gap 6, Blood Urea Nitrogen 9 , Creatinine 1.0, Estimat Glomerular Filtration Rate , Glucose Level 112H, Calcium Level 8.6 Current Medications Medications (Trade) Dose Ordered Sig/Ally Route PRN Reason Start Time Stop Time Status Last Admin Dose Admin Acetaminophen (Tylenol) 650 mg Q4H PRN ORAL fever 06/19/18 20:45 07/19/18 20:44 06/20/18 20:33 Acetaminophen (Tylenol) 650 mg Q4H PRN ORAL Mild Pain (Pain Scale 1-3) 06/23/18 10:45 06/23/18 19:00 Al Hydroxide/Mg Hydroxide (Mylanta II) 30 ml Q6H PRN ORAL dyspepsia 06/19/18 20:45 07/19/18 20:44 Albuterol/ Ipratropium (Albuterol/ Ipratropium) 3 ml Q4H PRN HHN Shortness of Breath 06/19/18 20:45 06/24/18 20:44 Amlodipine Besylate (Norvasc) 10 mg DAILY ORAL 06/20/18 09:00 07/20/18 08:59 06/22/18 08:16 Diphenhydramine HCl (Benadryl) 25 mg Q15M PRN IVP Itching 06/23/18 10:45 06/23/18 19:00 Donepezil HCl (Aricept) 10 mg DAILY ORAL 06/20/18 09:00 07/20/18 08:59 06/22/18 08:15 Fentanyl Citrate (Sublimaze 100 mcg/2 mL) 25 mcg Q10M PRN IV Moderate Pain (Pain Scale 4-6) 06/23/18 10:45 06/23/18 19:00 Heparin Sodium (Porcine) (Heparin 5000 units/ml) 5,000 units EVERY 12 HOURS SUBQ 06/19/18 21:00 07/19/18 20:59 06/22/18 08:20 Hydromorphone HCl (Dilaudid) 0.5 mg Q15M PRN IVP Severe Pain (Pain Scale 7-10) 06/23/18 10:45 06/23/18 19:00 Labetalol HCl (Normodyne) 5 mg Q10M PRN IV SBP>160 / DBP>90 06/23/18 10:45 06/23/18 19:00 Levofloxacin (Levaquin) 250 mg DAILY ORAL 06/22/18 09:00 06/23/18 23:59 06/22/18 08:15 Nitroglycerin (Ntg) 0.4 mg Q5M PRN SL Prn Chest Pain 06/19/18 20:45 07/19/18 20:44 06/21/18 21:57 Ondansetron HCl (Zofran) 4 mg Q1H PRN IVP Nausea & Vomiting 06/23/18 10:45 06/23/18 19:00 Ondansetron HCl (Zofran) 4 mg Q6H PRN IVP Nausea & Vomiting 06/19/18 20:45 07/19/18 20:44 Pantoprazole (Protonix) 40 mg EVERY 12 HOURS ORAL 06/22/18 21:00 07/22/18 20:59 06/22/18 20:32 Polyethylene Glycol (Miralax) 17 gm DAILYPRN PRN ORAL Constipation 06/19/18 20:45 07/19/18 20:44 Promethazine HCl/ Codeine (Phenergan with Codeine) 5 ml Q4H PRN ORAL For Cough 06/19/18 20:45 07/19/18 20:44 06/20/18 08:20 Sucralfate (Carafate) 1 gm AC+HS ORAL 06/22/18 16:30 07/22/18 16:29 06/23/18 13:10 Temazepam (Restoril) 15 mg HSPRN PRN ORAL Insomnia 06/19/18 20:45 06/26/18 20:44 06/22/18 20:38 Jamie Griffin MD Jun 23, 2018 14:19
--- NOTE | 2018-06-23 14:58 | Diagnostic Imaging Report ---
Indication: Sore throat, difficulty swallowing, reflux Technique: Patient ingested effervescent granules, thick and thin liquid barium, and rapid sequence spot images obtained both upright and prone Comparison: none Findings: Exam is somewhat limited due to suboptimal ability the patient cooperate. There is esophageal dysmotility with evidence of tertiary contractions. There is a small sliding-type hiatal hernia. No definite ulcerations, strictures, filling defects demonstrated. No gastroesophageal reflux observed under fluoroscopy. A single view of the stomach is unremarkable. Impression: Somewhat limited exam Evidence of esophageal dysmotility Small hiatal hernia
--- NOTE | 2018-06-23 15:46 | Infectious Diseases Prog Note ---
Assessment/Plan Assessment/Plan Assessment: Probable bronchitis -CXR 06/22: There is some scarring at the right lung base again demonstrated, as well as some right apical pleural and parenchymal scarring and volume loss No definite acute infiltrates or effusions. -CXR: Chronic lung disease with biapical pleural thickening and scarring and bronchiectasis in the left upper lung. Superimposed infection not excluded. Clinical correlation and follow-up exam recommended. Afebrile, no leukocytosis -u/a neg Dysphagia HTN Asthma/COPD Alzheimer Dementia Plan: -Continue PO levaquin abx d#/ -06/20 SP IV Vanco and Cefepime #2 -f/u cx -Monitor CBC/CMP, temperatures -aspiration precautions Thank you for this consultation. Will continue to follow along with you. Discussed with RN. Subjective Allergies: Coded Allergies: CHOCOLATE FLAVOR (Verified Allergy, Unknown, 06/23/18) patient will have diarrhea Subjective afebrile at 2l NC no leukocytosis Objective Vital Signs Last 24 Hour Vital Signs Date Time Temp Pulse Resp B/P (MAP) Pulse Ox O2 Delivery O2 Flow Rate FiO2 06/23/18 12:00 97.9 77 20 124/59 (80) 98 97.9 77 06/23/18 11:25 83 16 131/67 99 Nasal Cannula 3 06/23/18 11:24 207.1 84 16 99 06/23/18 11:15 84 16 137/69 99 Nasal Cannula 3 06/23/18 11:10 97.3 84 16 124/72 99 Nasal Cannula 3 97.3 06/23/18 09:00 Nasal Cannula 2.0 Nasal Cannula 2.0 06/23/18 08:02 99 Nasal Cannula 2.0 28 06/23/18 08:02 Nasal Cannula 2.0 28 06/23/18 08:02 82 18 Nasal Cannula 2.0 28 06/23/18 08:00 97.2 87 20 118/57 (77) 99 97.2 87 06/23/18 05:04 96.4 95 20 114/55 (74) 97 96.4 95 06/23/18 04:00 96.4 95 20 114/55 (74) 98 96.4 95 06/23/18 00:00 96.1 85 20 115/65 (82) 98 96.1 85 06/22/18 21:00 Nasal Cannula 2.0 Nasal Cannula 2.0 06/22/18 20:04 Nasal Cannula 2.0 28 06/22/18 20:04 83 18 Nasal Cannula 2.0 28 06/22/18 20:04 96 Nasal Cannula 2.0 28 06/22/18 19:49 97.2 80 20 111/50 (70) 97 97.2 80 06/22/18 16:00 97.8 75 19 134/83 (100) 97 97.8 Height (Feet): 5 Height (Inches): 5.00 Weight (Pounds): 131 Objective General Appearance: well appearing, no apparent distress Head: normocephalic, atraumatic Eyes: bilateral eye PERRL, bilateral eye EOMI ENT: hearing grossly normal, normal pharynx, TMs + canals normal, uvula midline Neck: full range of motion, supple, no meningismus, no bony tend Respiratory: lungs clear, normal breath sounds, no rhonchi, no respiratory distress, no retraction, no accessory muscle use Cardiovascular normal peripheral pulses, regular rate, rhythm, no edema, no gallop, no JVD, no murmur Gastrointestinal: normal bowel sounds, non tender, soft, no mass, no organomegaly, non-distended, no guarding, no hernia, no pulsatile mass, no rebound Genitourinary: no CVA tenderness Musculoskeletal: normal inspection Neurologic: oriented x3, responsive, coding specialist III-XII nml as tested, motor strength/ tone normal, sensory intact Skin: normal color, no rash, warm/dry, palpation normal Microbiology Date/Time Source Procedure Growth Status 06/21/18 18:20 Sputum Gram Stain - Final Resulted 06/21/18 18:20 Sputum Sputum Culture Pending Resulted Laboratory Tests Test 06/23/18 06:25 White Blood Count 5.7 K/UL (4.8-10.8) Red Blood Count 4.45 M/UL (4.20-5.40) Hemoglobin 13.8 G/DL (12.0-16.0) Hematocrit 40.0 % (37.0-47.0) Mean Corpuscular Volume 90 FL (80-99) Mean Corpuscular Hemoglobin 31.1 PG (27.0-31.0) H Mean Corpuscular Hemoglobin Concent 34.5 G/DL (32.0-36.0) Red Cell Distribution Width 10.8 % (11.6-14.8) L Platelet Count 154 K/UL (150-450) Mean Platelet Volume 7.9 FL (6.5-10.1) Neutrophils (%) (Auto) 65.6 % (45.0-75.0) Lymphocytes (%) (Auto) 17.9 % (20.0-45.0) L Monocytes (%) (Auto) 8.1 % (1.0-10.0) Eosinophils (%) (Auto) 7.2 % (0.0-3.0) H Basophils (%) (Auto) 1.2 % (0.0-2.0) Prothrombin Time 9.8 SEC (9.30-11.50) Prothromb Time International Ratio 0.9 (0.9-1.1) Activated Partial Thromboplast Time 27 SEC (23-33) Sodium Level 140 MMOL/L (136-145) Potassium Level 4.0 MMOL/L (3.5-5.1) Chloride Level 104 MMOL/L (98-107) Carbon Dioxide Level 30 MMOL/L (21-32) Anion Gap 6 mmol/L (5-15) Blood Urea Nitrogen 9 mg/dL (7-18) Creatinine 1.0 MG/DL (0.55-1.30) Estimat Glomerular Filtration Rate mL/min (>60) Glucose Level 112 MG/DL (74-106) H Calcium Level 8.6 MG/DL (8.5-10.1) Current Medications Medications (Trade) Dose Ordered Sig/Ally Route PRN Reason Start Time Stop Time Status Last Admin Dose Admin Acetaminophen (Tylenol) 650 mg Q4H PRN ORAL fever 06/19/18 20:45 07/19/18 20:44 06/20/18 20:33 Acetaminophen (Tylenol) 650 mg Q4H PRN ORAL Mild Pain (Pain Scale 1-3) 06/23/18 10:45 06/23/18 19:00 Al Hydroxide/Mg Hydroxide (Mylanta II) 30 ml Q6H PRN ORAL dyspepsia 06/19/18 20:45 07/19/18 20:44 Albuterol/ Ipratropium (Albuterol/ Ipratropium) 3 ml Q4H PRN HHN Shortness of Breath 06/19/18 20:45 06/24/18 20:44 Amlodipine Besylate (Norvasc) 10 mg DAILY ORAL 06/20/18 09:00 07/20/18 08:59 06/22/18 08:16 Diphenhydramine HCl (Benadryl) 25 mg Q15M PRN IVP Itching 06/23/18 10:45 06/23/18 19:00 Donepezil HCl (Aricept) 10 mg DAILY ORAL 06/20/18 09:00 07/20/18 08:59 06/22/18 08:15 Fentanyl Citrate (Sublimaze 100 mcg/2 mL) 25 mcg Q10M PRN IV Moderate Pain (Pain Scale 4-6) 06/23/18 10:45 06/23/18 19:00 Heparin Sodium (Porcine) (Heparin 5000 units/ml) 5,000 units EVERY 12 HOURS SUBQ 06/19/18 21:00 07/19/18 20:59 06/22/18 08:20 Hydromorphone HCl (Dilaudid) 0.5 mg Q15M PRN IVP Severe Pain (Pain Scale 7-10) 06/23/18 10:45 06/23/18 19:00 Labetalol HCl (Normodyne) 5 mg Q10M PRN IV SBP>160 / DBP>90 06/23/18 10:45 06/23/18 19:00 Levofloxacin (Levaquin) 250 mg DAILY ORAL 06/22/18 09:00 06/23/18 23:59 06/22/18 08:15 Nitroglycerin (Ntg) 0.4 mg Q5M PRN SL Prn Chest Pain 06/19/18 20:45 07/19/18 20:44 06/21/18 21:57 Ondansetron HCl (Zofran) 4 mg Q1H PRN IVP Nausea & Vomiting 06/23/18 10:45 06/23/18 19:00 Ondansetron HCl (Zofran) 4 mg Q6H PRN IVP Nausea & Vomiting 06/19/18 20:45 07/19/18 20:44 Pantoprazole (Protonix) 40 mg EVERY 12 HOURS ORAL 06/22/18 21:00 07/22/18 20:59 06/22/18 20:32 Polyethylene Glycol (Miralax) 17 gm DAILYPRN PRN ORAL Constipation 06/19/18 20:45 07/19/18 20:44 Promethazine HCl/ Codeine (Phenergan with Codeine) 5 ml Q4H PRN ORAL For Cough 06/19/18 20:45 07/19/18 20:44 06/20/18 08:20 Sucralfate (Carafate) 1 gm AC+HS ORAL 06/22/18 16:30 07/22/18 16:29 06/23/18 13:10 Temazepam (Restoril) 15 mg HSPRN PRN ORAL Insomnia 06/19/18 20:45 06/26/18 20:44 06/22/18 20:38 Peggy Hernandez M.D. Jun 23, 2018 15:46
--- NOTE | 2018-06-23 16:57 | Diagnostic Imaging Report ---
Indications: Dysphagia Technique: Patient ingested multiple substances under the supervision of speech pathology. Video fluoroscopic recording performed. Total fluoroscopy time 133 seconds. Total dose area product 0.98829 mGycm2. Total number of fluoroscopic sequences-8 Comparison: none Findings: Trace laryngeal penetration is demonstrated within liquid barium were ingested from a cup. Similar findings with nectar thick liquid barium. No vandana aspiration. No significant early or residual pooling. Impression: Positive for penetration of thin and nectar thick liquid barium. Negative for aspiration Please refer to speech pathology report for more detailed analysis
--- NOTE | 2018-06-23 18:30 | Operative Note - Dictated ---
DATE OF OPERATION: 06/23/2018 GASTROENTEROLOGY PROCEDURE NOTE PROCEDURE: Upper gastrointestinal endoscopy with biopsy. SURGEON: Alyssa Haas M.D. ANESTHESIA: Please see the separate anesthesiologist's notes for details. PRE-ENDOSCOPIC DIAGNOSIS: Odynophagia at the cervical level. POST-ENDOSCOPIC DIAGNOSES: 1. A 1-2-cm incidental hiatal hernia. 2. No evidence of esophagitis, esophageal ulcerations, or other abnormalities that can explain the patient's symptoms. 3. Status post random biopsies of the lower esophagus and the mid esophagus. DESCRIPTION OF PROCEDURE: The procedure, its risks, indications, alternatives, and possible complications were explained and informed consent was obtained. The endoscope was introduced into oropharynx and advanced to the duodenum. The endoscope was then gradually withdrawn. Examination of the duodenum, gastric and esophageal area did not reveal any abnormalities except for an incidental 1-2-cm hiatal hernia. Biopsies of the lower esophagus and mid esophagus were sent to pathology for review. The endoscope was removed. The patient was sent to recovery in good condition. COMPLICATIONS: None. RECOMMENDATIONS: 1. Follow up biopsy results. 2. Reflux precautions. 3. Outpatient followup. Alyssa Haas M.D. DR: BLANKA JOB#: [id number] CC:
[2018-06-24] VITALS: BP 123/52
[2018-06-24 04:00] VITALS: BP 121/86
[2018-06-24] MEDS: Sucralfate 1gm tab ORAL SCH ×2 (06:04→11:37)
[2018-06-24 06:43] LABS: BASOPHILS % (AUTO) 1.5 % (0.0-2.0); EOSINOPHILS % (AUTO) 5.6 % (0.0-3.0); HEMATOCRIT 39.5 % (37.0-47.0); HEMOGLOBIN 13.5 G/DL (12.0-16.0); LYMPHOCYTES % (AUTO) 16.7 % (20.0-45.0); MEAN CORPUSCULAR VOLUME 89 FL (80-99); MONOCYTES % (AUTO) 8.2 % (1.0-10.0); NEUTROPHILS % (AUTO) 68.1 % (45.0-75.0); PLATELET COUNT 138 K/UL (150-450); RED BLOOD COUNT 4.42 M/UL (4.20-5.40); WHITE BLOOD COUNT 6.6 K/UL (4.8-10.8)
[2018-06-24 06:52] LABS: ANION GAP 8 mmol/L (5-15); BLOOD UREA NITROGEN 9 mg/dL (7-18); CALCIUM 8.5 MG/DL (8.5-10.1); CARBON DIOXIDE 28 MMOL/L (21-32); CHLORIDE 105 MMOL/L (98-107); CREATININE 0.8 MG/DL (0.55-1.30); POTASSIUM 3.9 MMOL/L (3.5-5.1); SODIUM 141 MMOL/L (136-145)
[2018-06-24 08:00] VITALS: BP 124/55
[2018-06-24] MEDS: Heparin 5000 units/ml inj SUBQ SCH (09:00)
[2018-06-24] MEDS: Donepezil 10mg tab ORAL SCH (09:24)
--- NOTE | 2018-06-24 10:56 | General Progress Note ---
Assessment/Plan Problem List: (1) COPD exacerbation ICD Codes: J44.1 - Chronic obstructive pulmonary disease with (acute) exacerbation SNOMED: 162289979 (2) Hypoxia ICD Codes: R09.02 - Hypoxemia SNOMED: 002747751 (3) Respiratory distress ICD Codes: R06.00 - Dyspnea, unspecified SNOMED: 681413740 (4) Reactive airway disease ICD Codes: J45.909 - Unspecified asthma, uncomplicated SNOMED: 658699794420 (5) Bronchiectasis ICD Codes: J47.9 - Bronchiectasis, uncomplicated SNOMED: 20551524 (6) History of hypertension ICD Codes: Z86.79 - Personal history of other diseases of the circulatory system SNOMED: 527855946 Status: stable, progressing Assessment/Plan o2 pulm tx abx dc w hh Subjective Constitutional: Reports: weakness Allergies: Coded Allergies: CHOCOLATE FLAVOR (Verified Allergy, Unknown, 06/23/18) patient will have diarrhea All Systems: reviewed and negative except above Subjective 02 nc calm Objective Last 24 Hour Vital Signs Date Time Temp Pulse Resp B/P (MAP) Pulse Ox O2 Delivery O2 Flow Rate FiO2 06/24/18 09:00 80 124/55 06/24/18 08:00 99.5 80 20 124/55 (78) 98 99.5 80 06/24/18 06:39 97 Nasal Cannula 2.0 28 06/24/18 06:39 80 18 Nasal Cannula 2.0 28 06/24/18 06:39 Nasal Cannula 2.0 28 06/24/18 04:00 98.1 90 18 121/86 (98) 94 98.1 90 06/24/18 00:00 98.9 87 19 123/52 (75) 94 98.9 87 06/23/18 21:00 Nasal Cannula 2.0 Nasal Cannula 2.0 06/23/18 20:47 98 Room Air 06/23/18 20:47 Room Air 06/23/18 20:46 81 18 Room Air 06/23/18 20:00 97.6 93 18 140/68 (92) 95 97.6 93 06/23/18 16:00 98.0 80 20 131/67 (88) 95 98.0 80 06/23/18 12:00 97.9 77 20 124/59 (80) 98 97.9 77 06/23/18 11:25 83 16 131/67 99 Nasal Cannula 3 06/23/18 11:24 207.1 84 16 99 06/23/18 11:15 84 16 137/69 99 Nasal Cannula 3 06/23/18 11:10 97.3 84 16 124/72 99 Nasal Cannula 3 97.3 Intake and Output 06/23/18 06/24/18 19:00 07:00 Intake Total 510 ml 240 ml Balance 510 ml 240 ml Intake Oral 360 ml 240 ml IV Total 150 ml # Voids 2 Laboratory Tests 06/24/18 05:45: White Blood Count 6.6, Red Blood Count 4.42, Hemoglobin 13.5, Hematocrit 39.5, Mean Corpuscular Volume 89, Mean Corpuscular Hemoglobin 30.6, Mean Corpuscular Hemoglobin Concent 34.2, Red Cell Distribution Width 11.0L, Platelet Count 138L , Mean Platelet Volume 8.0, Neutrophils (%) (Auto) 68.1, Lymphocytes (%) (Auto) 16.7L, Monocytes (%) (Auto) 8.2, Eosinophils (%) (Auto) 5.6H, Basophils (%) ( Auto) 1.5, Sodium Level 141, Potassium Level 3.9, Chloride Level 105, Carbon Dioxide Level 28, Anion Gap 8, Blood Urea Nitrogen 9, Creatinine 0.8, Estimat Glomerular Filtration Rate , Glucose Level 115H, Calcium Level 8.5 Height (Feet): 5 Height (Inches): 5.00 Weight (Pounds): 131 General Appearance: lethargic EENT: normal ENT inspection Neck: normal alignment Cardiovascular: normal peripheral pulses, normal rate, regular rhythm Respiratory/Chest: chest wall non-tender, lungs clear, normal breath sounds Abdomen: normal bowel sounds, non tender, soft Extremities: normal inspection Edema: no edema noted Arm (L), no edema noted Arm (R), no edema noted Leg (L), no edema noted Leg (R), no edema noted Pedal (L), no edema noted Pedal (R), no edema noted Generalized Neurologic: motor weakness Skin: normal pigmentation, warm/dry Pal Britt DO Jun 24, 2018 10:56
[2018-06-24 12:00] VITALS: BP 125/58
--- NOTE | 2018-06-24 12:10 | Infectious Diseases Prog Note ---
Assessment/Plan Assessment/Plan Assessment: Probable bronchitis -CXR 06/22: There is some scarring at the right lung base again demonstrated, as well as some right apical pleural and parenchymal scarring and volume loss No definite acute infiltrates or effusions. -CXR: Chronic lung disease with biapical pleural thickening and scarring and bronchiectasis in the left upper lung. Superimposed infection not excluded. Clinical correlation and follow-up exam recommended. S/P - PO levaquin abx d#5/06/23/18 - -06/20 SP IV Vanco and Cefepime #2 Afebrile, no leukocytosis -u/a neg Dysphagia HTN Asthma/COPD Alzheimer Dementia Plan: -Monitor CBC/CMP, temperatures -aspiration precautions Thank you for this consultation. Will continue to follow along with you. Discussed with RN. Subjective Allergies: Coded Allergies: CHOCOLATE FLAVOR (Verified Allergy, Unknown, 06/23/18) patient will have diarrhea Subjective Patient reports that her breathing is at her home baseline (2L O2), Denies N/V/D and Fever Objective Vital Signs Last 24 Hour Vital Signs Date Time Temp Pulse Resp B/P (MAP) Pulse Ox O2 Delivery O2 Flow Rate FiO2 06/24/18 09:00 80 124/55 06/24/18 08:00 99.5 80 20 124/55 (78) 98 99.5 80 06/24/18 06:39 97 Nasal Cannula 2.0 28 06/24/18 06:39 80 18 Nasal Cannula 2.0 28 06/24/18 06:39 Nasal Cannula 2.0 28 06/24/18 04:00 98.1 90 18 121/86 (98) 94 98.1 90 06/24/18 00:00 98.9 87 19 123/52 (75) 94 98.9 87 06/23/18 21:00 Nasal Cannula 2.0 Nasal Cannula 2.0 06/23/18 20:47 98 Room Air 06/23/18 20:47 Room Air 06/23/18 20:46 81 18 Room Air 06/23/18 20:00 97.6 93 18 140/68 (92) 95 97.6 93 06/23/18 16:00 98.0 80 20 131/67 (88) 95 98.0 80 Height (Feet): 5 Height (Inches): 5.00 Weight (Pounds): 131 Objective General Appearance: well appearing, no apparent distress, on 2L NC Head: normocephalic, atraumatic Eyes: bilateral eye PERRL, bilateral eye EOMI ENT: hearing grossly normal, normal pharynx, TMs + canals normal, uvula midline Neck: full range of motion, supple, no meningismus, no bony tend Respiratory: B/L Wheezing (Mild) no rhonchi, no respiratory distress, no retraction, no accessory muscle use Cardiovascular normal peripheral pulses, regular rate, rhythm, no edema, no gallop, no murmur Gastrointestinal: normal bowel sounds, non tender, soft, no mass, non- distended Musculoskeletal: normal inspection, Neurologic: oriented x3, motor strength/tone normal, sensory intact Skin: normal color, no rash, warm/dry, palpation normal Microbiology Date/Time Source Procedure Growth Status 06/21/18 18:20 Sputum Gram Stain - Final Resulted 06/21/18 18:20 Sputum Sputum Culture - Preliminary Resulted Laboratory Tests Test 06/24/18 05:45 White Blood Count 6.6 K/UL (4.8-10.8) Red Blood Count 4.42 M/UL (4.20-5.40) Hemoglobin 13.5 G/DL (12.0-16.0) Hematocrit 39.5 % (37.0-47.0) Mean Corpuscular Volume 89 FL (80-99) Mean Corpuscular Hemoglobin 30.6 PG (27.0-31.0) Mean Corpuscular Hemoglobin Concent 34.2 G/DL (32.0-36.0) Red Cell Distribution Width 11.0 % (11.6-14.8) L Platelet Count 138 K/UL (150-450) L Mean Platelet Volume 8.0 FL (6.5-10.1) Neutrophils (%) (Auto) 68.1 % (45.0-75.0) Lymphocytes (%) (Auto) 16.7 % (20.0-45.0) L Monocytes (%) (Auto) 8.2 % (1.0-10.0) Eosinophils (%) (Auto) 5.6 % (0.0-3.0) H Basophils (%) (Auto) 1.5 % (0.0-2.0) Sodium Level 141 MMOL/L (136-145) Potassium Level 3.9 MMOL/L (3.5-5.1) Chloride Level 105 MMOL/L (98-107) Carbon Dioxide Level 28 MMOL/L (21-32) Anion Gap 8 mmol/L (5-15) Blood Urea Nitrogen 9 mg/dL (7-18) Creatinine 0.8 MG/DL (0.55-1.30) Estimat Glomerular Filtration Rate mL/min (>60) Glucose Level 115 MG/DL (74-106) H Calcium Level 8.5 MG/DL (8.5-10.1) Current Medications Medications (Trade) Dose Ordered Sig/Ally Route PRN Reason Start Time Stop Time Status Last Admin Dose Admin Acetaminophen (Tylenol) 650 mg Q4H PRN ORAL fever 06/19/18 20:45 07/19/18 20:44 06/24/18 09:24 Al Hydroxide/Mg Hydroxide (Mylanta II) 30 ml Q6H PRN ORAL dyspepsia 06/19/18 20:45 07/19/18 20:44 Albuterol/ Ipratropium (Albuterol/ Ipratropium) 3 ml Q4H PRN HHN Shortness of Breath 06/19/18 20:45 06/24/18 20:44 Amlodipine Besylate (Norvasc) 10 mg DAILY ORAL 06/20/18 09:00 07/20/18 08:59 06/22/18 08:16 Donepezil HCl (Aricept) 10 mg DAILY ORAL 06/20/18 09:00 07/20/18 08:59 06/24/18 09:24 Heparin Sodium (Porcine) (Heparin 5000 units/ml) 5,000 units EVERY 12 HOURS SUBQ 06/19/18 21:00 07/19/18 20:59 06/23/18 21:12 Nitroglycerin (Ntg) 0.4 mg Q5M PRN SL Prn Chest Pain 06/19/18 20:45 07/19/18 20:44 06/21/18 21:57 Ondansetron HCl (Zofran) 4 mg Q6H PRN IVP Nausea & Vomiting 06/19/18 20:45 07/19/18 20:44 Pantoprazole (Protonix) 40 mg EVERY 12 HOURS ORAL 06/22/18 21:00 07/22/18 20:59 06/24/18 09:24 Polyethylene Glycol (Miralax) 17 gm DAILYPRN PRN ORAL Constipation 06/19/18 20:45 07/19/18 20:44 Promethazine HCl/ Codeine (Phenergan with Codeine) 5 ml Q4H PRN ORAL For Cough 06/19/18 20:45 07/19/18 20:44 06/20/18 08:20 Sucralfate (Carafate) 1 gm AC+HS ORAL 06/22/18 16:30 07/22/18 16:29 06/24/18 11:37 Temazepam (Restoril) 15 mg HSPRN PRN ORAL Insomnia 06/19/18 20:45 06/26/18 20:44 06/22/18 20:38 Robert Cox M.D. Jun 24, 2018 12:10
--- NOTE | 2018-06-24 14:16 | Pulmonology Progress Note ---
Assessment/Plan Problems: (1) Pneumonia (2) Bronchiectasis (3) Reactive airway disease (4) History of hypertension Assessment/Plan improving no new complains ENT, Dr. Gregory saw the pt, all reviewed check sputum titrate fio2 to sat of 92% monitor BP chest PT dvt prophylaxis. Subjective ROS Limited/Unobtainable: No Constitutional: Reports: no symptoms HEENT: Repors: no symptoms Respiratory: Reports: no symptoms Allergies: Coded Allergies: CHOCOLATE FLAVOR (Verified Allergy, Unknown, 06/23/18) patient will have diarrhea Objective Last 24 Hour Vital Signs Date Time Temp Pulse Resp B/P (MAP) Pulse Ox O2 Delivery O2 Flow Rate FiO2 06/24/18 12:00 99.0 80 20 125/58 (80) 96 99.0 80 06/24/18 09:00 80 124/55 06/24/18 08:00 99.5 80 20 124/55 (78) 98 99.5 80 06/24/18 06:39 97 Nasal Cannula 2.0 28 06/24/18 06:39 80 18 Nasal Cannula 2.0 28 06/24/18 06:39 Nasal Cannula 2.0 28 06/24/18 04:00 98.1 90 18 121/86 (98) 94 98.1 90 06/24/18 00:00 98.9 87 19 123/52 (75) 94 98.9 87 06/23/18 21:00 Nasal Cannula 2.0 Nasal Cannula 2.0 06/23/18 20:47 98 Room Air 06/23/18 20:47 Room Air 06/23/18 20:46 81 18 Room Air 06/23/18 20:00 97.6 93 18 140/68 (92) 95 97.6 93 06/23/18 16:00 98.0 80 20 131/67 (88) 95 98.0 80 Intake and Output 06/23/18 06/24/18 19:00 07:00 Intake Total 510 ml 240 ml Balance 510 ml 240 ml Intake Oral 360 ml 240 ml IV Total 150 ml # Voids 2 Objective egd with biopsy done General Appearance: WD/WN Cardiovascular: normal peripheral pulses, normal rate Abdomen: soft, non tender, no mass Extremities: no cyanosis Skin: no lesions Neurologic/Psychiatric: barrel scraper II-XII grossly normal, abnormal gait, responsive Microbiology Date/Time Source Procedure Growth Status 06/21/18 18:20 Sputum Gram Stain - Final Resulted 06/21/18 18:20 Sputum Sputum Culture - Preliminary Resulted Laboratory Tests 06/24/18 05:45: White Blood Count 6.6, Red Blood Count 4.42, Hemoglobin 13.5, Hematocrit 39.5, Mean Corpuscular Volume 89, Mean Corpuscular Hemoglobin 30.6, Mean Corpuscular Hemoglobin Concent 34.2, Red Cell Distribution Width 11.0L, Platelet Count 138L , Mean Platelet Volume 8.0, Neutrophils (%) (Auto) 68.1, Lymphocytes (%) (Auto) 16.7L, Monocytes (%) (Auto) 8.2, Eosinophils (%) (Auto) 5.6H, Basophils (%) ( Auto) 1.5, Sodium Level 141, Potassium Level 3.9, Chloride Level 105, Carbon Dioxide Level 28, Anion Gap 8, Blood Urea Nitrogen 9, Creatinine 0.8, Estimat Glomerular Filtration Rate , Glucose Level 115H, Calcium Level 8.5 Current Medications Medications (Trade) Dose Ordered Sig/Ally Route PRN Reason Start Time Stop Time Status Last Admin Dose Admin Acetaminophen (Tylenol) 650 mg Q4H PRN ORAL fever 06/19/18 20:45 07/19/18 20:44 06/24/18 09:24 Al Hydroxide/Mg Hydroxide (Mylanta II) 30 ml Q6H PRN ORAL dyspepsia 06/19/18 20:45 07/19/18 20:44 Albuterol/ Ipratropium (Albuterol/ Ipratropium) 3 ml Q4H PRN HHN Shortness of Breath 06/19/18 20:45 06/24/18 20:44 Amlodipine Besylate (Norvasc) 10 mg DAILY ORAL 06/20/18 09:00 07/20/18 08:59 06/22/18 08:16 Donepezil HCl (Aricept) 10 mg DAILY ORAL 06/20/18 09:00 07/20/18 08:59 06/24/18 09:24 Heparin Sodium (Porcine) (Heparin 5000 units/ml) 5,000 units EVERY 12 HOURS SUBQ 06/19/18 21:00 07/19/18 20:59 06/23/18 21:12 Nitroglycerin (Ntg) 0.4 mg Q5M PRN SL Prn Chest Pain 06/19/18 20:45 07/19/18 20:44 06/21/18 21:57 Ondansetron HCl (Zofran) 4 mg Q6H PRN IVP Nausea & Vomiting 06/19/18 20:45 07/19/18 20:44 Pantoprazole (Protonix) 40 mg EVERY 12 HOURS ORAL 06/22/18 21:00 07/22/18 20:59 06/24/18 09:24 Polyethylene Glycol (Miralax) 17 gm DAILYPRN PRN ORAL Constipation 06/19/18 20:45 07/19/18 20:44 Promethazine HCl/ Codeine (Phenergan with Codeine) 5 ml Q4H PRN ORAL For Cough 06/19/18 20:45 07/19/18 20:44 06/20/18 08:20 Sucralfate (Carafate) 1 gm AC+HS ORAL 06/22/18 16:30 07/22/18 16:29 06/24/18 11:37 Temazepam (Restoril) 15 mg HSPRN PRN ORAL Insomnia 06/19/18 20:45 06/26/18 20:44 06/22/18 20:38 Jamie Griffin MD Jun 24, 2018 14:16
[2018-06-24] MEDS ORDERED: ACETAMINOPHEN325 M1 ORAL (15:22)
[2018-06-24] MEDS ORDERED: MYLANTA II30 ML ORAL (15:23)
[2018-06-24] MEDS ORDERED: HEPARIN SO5000 UNIT2 SUBQ (15:24)
[2018-06-24] MEDS ORDERED: PROMETHAZINE-C118 M1 ORAL (15:24)
[2018-06-24] MEDS ORDERED: PANTOPRAZOLE SO40 MG ORAL (15:26)
[2018-06-24] MEDS ORDERED: ONDANSETRON4 MG/2 M2 IVP (15:26)
[2018-06-24] MEDS ORDERED: POLYETHYLENE GL17 GM ORAL (15:26)
[2018-06-24] MEDS ORDERED: CARAFATE1 G1 ORAL (15:27)
--- NOTE | 2018-06-24 15:44 | GI Progress Note ---
Assessment/Plan Problems: (1) Esophageal dysmotility ICD Codes: K22.4 - Dyskinesia of esophagus SNOMED: 368715249 (2) Abdominal distension ICD Codes: R14.0 - Abdominal distension (gaseous) SNOMED: 61157113 (3) GERD (gastroesophageal reflux disease) ICD Codes: K21.9 - Gastro-esophageal reflux disease without esophagitis SNOMED: 298707004 (4) Odynophagia ICD Codes: R13.10 - Dysphagia, unspecified SNOMED: 95438765 (5) Abdominal distension ICD Codes: R14.0 - Abdominal distension (gaseous) SNOMED: 06882962 Status: stable Status Narrative Discussed with Dr. Ramirez. Assessment/Plan s/p EGD >> 1-2 cm HH esophagram reviewed >> esophageal dysmotility RECOMMENDATIONS: okay for DC per GI standpoint adv diet >> dietary teachings given regarding esophageal dysmotility. ppi 1. Follow up biopsy results. 2. Reflux precautions. 3. Outpatient followup. Subjective Gastrointestinal/Abdominal: Reports: no symptoms Objective Last 24 Hour Vital Signs Date Time Temp Pulse Resp B/P (MAP) Pulse Ox O2 Delivery O2 Flow Rate FiO2 06/24/18 15:19 97.3 97.3 06/24/18 12:00 99.0 80 20 125/58 (80) 96 99.0 80 06/24/18 09:00 Nasal Cannula 2.0 Nasal Cannula 2.0 06/24/18 09:00 80 124/55 06/24/18 08:00 99.5 80 20 124/55 (78) 98 99.5 80 06/24/18 06:39 97 Nasal Cannula 2.0 28 06/24/18 06:39 80 18 Nasal Cannula 2.0 28 06/24/18 06:39 Nasal Cannula 2.0 28 06/24/18 04:00 98.1 90 18 121/86 (98) 94 98.1 90 06/24/18 00:00 98.9 87 19 123/52 (75) 94 98.9 87 06/23/18 21:00 Nasal Cannula 2.0 Nasal Cannula 2.0 06/23/18 20:47 98 Room Air 06/23/18 20:47 Room Air 06/23/18 20:46 81 18 Room Air 06/23/18 20:00 97.6 93 18 140/68 (92) 95 97.6 93 06/23/18 16:00 98.0 80 20 131/67 (88) 95 98.0 80 Intake and Output 06/23/18 06/24/18 19:00 07:00 Intake Total 510 ml 240 ml Balance 510 ml 240 ml Intake Oral 360 ml 240 ml IV Total 150 ml # Voids 2 Laboratory Tests Test 06/24/18 05:45 White Blood Count 6.6 K/UL (4.8-10.8) Red Blood Count 4.42 M/UL (4.20-5.40) Hemoglobin 13.5 G/DL (12.0-16.0) Hematocrit 39.5 % (37.0-47.0) Mean Corpuscular Volume 89 FL (80-99) Mean Corpuscular Hemoglobin 30.6 PG (27.0-31.0) Mean Corpuscular Hemoglobin Concent 34.2 G/DL (32.0-36.0) Red Cell Distribution Width 11.0 % (11.6-14.8) L Platelet Count 138 K/UL (150-450) L Mean Platelet Volume 8.0 FL (6.5-10.1) Neutrophils (%) (Auto) 68.1 % (45.0-75.0) Lymphocytes (%) (Auto) 16.7 % (20.0-45.0) L Monocytes (%) (Auto) 8.2 % (1.0-10.0) Eosinophils (%) (Auto) 5.6 % (0.0-3.0) H Basophils (%) (Auto) 1.5 % (0.0-2.0) Sodium Level 141 MMOL/L (136-145) Potassium Level 3.9 MMOL/L (3.5-5.1) Chloride Level 105 MMOL/L (98-107) Carbon Dioxide Level 28 MMOL/L (21-32) Anion Gap 8 mmol/L (5-15) Blood Urea Nitrogen 9 mg/dL (7-18) Creatinine 0.8 MG/DL (0.55-1.30) Estimat Glomerular Filtration Rate mL/min (>60) Glucose Level 115 MG/DL (74-106) H Calcium Level 8.5 MG/DL (8.5-10.1) Height (Feet): 5 Height (Inches): 5.00 Weight (Pounds): 131 General Appearance: WD/WN, no apparent distress, alert, thin Cardiovascular: normal rate Respiratory/Chest: normal breath sounds, no respiratory distress Abdominal Exam: normal bowel sounds, non tender, soft Extremities: normal range of motion, non-tender Kia Sadler NP Jun 24, 2018 15:44
[2018-06-24] MEDS ORDERED: TEMAZEPAM15 MG ORAL (15:47)
--- NOTE | 2018-06-27 10:56 | Discharge Summary ---
Discharge Summary Discharge Summary _ DATE OF ADMISSION: 06/19/2018 DATE OF DISCHARGE: 06/24/2018 REASON FOR ADMISSION: 79 years old female with past medical history of COPD, hypertension ,depression , dementia, presented to emergency department with chief complaint of increased shortness of breath, cough, dyspnea and fever for the last few days. Vital signs revealed no fever, but patient required placement on supplemental oxygen via nasal cannula to keep pulse oximetry above 90% . Chest x-ray revealed chronic lung disease with bilateral apical pleural thickening , scaring and bronchiectasis in the left upper lung. Superimposed infection was not excluded.. Laboratory workup was unremarkable. Patient admitted with diagnoses of bronchiectasis, pneumonia, hypertension, and reactive airway disease. CONSULTANTS: pulmonary Dr. Griffin ID specialist Dr. Hernandez GI specialist Dr. Ramirez ENT surgeon Dr. Gregory [facility] COURSE: Patient admitted. Patient started on empiric antibiotics. Supplemental oxygen titrated to keep pulse oximetry above 90%. Pulmonary toilet with hand held nebulizing therapy and chest physiotherapy provided. Gastroenterology Teacher closely followed . ID specialist followed. Sputum culture revealed Yasmin, blood culture were negative. Patient status post treatment for pneumonia DVT prophylaxis provided. Swallow evaluation revealed evidence of dysphagia and moderate aspiration risk. Diet started as per speech therapist recommendations with strict aspiration/ reflux precautions. Patient subsequently undergone video swallow evaluation which revealed mild to moderate oropharyngeal dysphagia and moderate aspiration risk. Patient was working with speech therapist during the stay in the hospital. patient complain of pain with swallowing. ENT surgeon consult was requested. Patient subsequently undergone nasopharyngeal fiber optic procedure which revealed 2 / 4 red arytenoids, otherwise unremarkable. Per ENT patient most likely had GERD. GI specialist closely followed. Patient undergone esophagram which revealed evidence of esophageal dysmotility. Patient undergone EGD which revealed incidental finding of 1-2 cm hiatal hernia. No evidence of esophagitis, ulceration or other abnormality to explain patient's symptoms. Patient undergone status post random biopsies of the lower esophagus and the mid esophagus. GI specialist recommended follow-up with the biopsy results, continue reflux precautions, and follow up as outpatient . Blood pressure was managed with current regimen and remained stable. Patient was on PPI. Supportive care provided. Home medications resumed. Bowel regimen instituted. Patient subsequently clinically improved and was stable for discharge home. FINAL DIAGNOSES: Bronchitis Bronchiectasis Probably pneumonia COPD/ Dysphagia Odynophagia Esophageal dysmotility GERD Dementia DISCHARGE MEDICATIONS: See Medication Reconciliation list. DISCHARGE INSTRUCTIONS: Patient was discharged home with home health services to follow. Follow up with primary care provider and GI specialist I have been assigned to dictate discharge summary for this account. I was not involved in the patient's management. Caren Panda NP Jun 27, 2018 10:56
--- NOTE | 2018-06-27 19:48 | Cardiology Report ---
APPROVED REPORT EKG Measurement Heart [id number] Normal sinus rhythm Normal ECG
== END 2018-06-24 17:00 | disposition home health service (06) | DRG 140 ==
LOC: EMR 17:25 → EDBEDREQ 19:51 → 4W 20:02
PROC: 0CJY8ZZ Inspection of Mouth and Throat, Via Natural or Artificial Opening Endoscopic (ICD-10-PCS; principal; 2018-06-22)
PROC: 0DB38ZX Excision of Lower Esophagus, Via Natural or Artificial Opening Endoscopic, Diagnostic (ICD-10-PCS; 2018-06-23)
PROC: 0DB28ZX Excision of Middle Esophagus, Via Natural or Artificial Opening Endoscopic, Diagnostic (ICD-10-PCS; 2018-06-23)
DX: J44.1 Chronic obstructive pulmonary disease with (acute) exacerbation (principal); J18.9 Pneumonia, unspecified organism; D72.1 Eosinophilia; G30.9 Alzheimer's disease, unspecified; R13.10 Dysphagia, unspecified; F02.80 Dementia in other diseases classified elsewhere, unspecified severity, without behavioral disturbance, psychotic disturbance, mood disturbance, and anxiety; F03.90 Unspecified dementia, unspecified severity, without behavioral disturbance, psychotic disturbance, mood disturbance, and anxiety; J40 Bronchitis, not specified as acute or chronic; K22.4 Dyskinesia of esophagus; K21.9 Gastro-esophageal reflux disease without esophagitis; K27.9 Peptic ulcer, site unspecified, unspecified as acute or chronic, without hemorrhage or perforation; R09.02 Hypoxemia; D14.1 Benign neoplasm of larynx
CPT/HCPCS: 36415; 71045; 74220; 74230; 80048; 80053; 80069; 81003; 82550; 82553; 83690; 83735; 84100; 84484; 85025; 85610; 85730; 87040; 87070; 87205; 93005; 94003; 94150; 94664; 94760; 97803